=== PATIENT | female | born 1980 | race African-American/Black ===

== ENCOUNTER 2017-12-24 12:55 | Emergency (ER) | payer MEDICARE, MEDICAID ==
[~2017-12-24] VITALS: Ht 154.9 cm; Wt 73.0 kg
[2017-12-24 14:16] VITALS: BP 108/77
[2017-12-24] MEDS ORDERED: ASPIRIN 325MG EC TABLET PO ONE (14:30)
[2017-12-24 15:01] LABS: BASOPHILS % 0.9 % (0.0-2.0); EOSINOPHILS % 1.3 % (0.0-5.0); HEMATOCRIT. 36.7 % (36.0-48.0); HEMOGLOBIN. 12.3 g/dL (12.0-16.0); LYMPHOCYTES % 29.6 % (20.0-50.0); MEAN CORPUSCULAR HEMOGLOBIN 30.2 pg (28.0-32.0); MEAN CORPUSCULAR VOLUME 90.4 fL (81.0-99.0); MEAN PLATELET VOLUME 6.4 fl (7.4-10.4); MONOCYTES % 11.9 % (2.0-8.0); NEUTROPHILS % 56.3 % (40.0-76.0); PLATELET 344 x1000/uL (130-400); RED BLOOD CELL COUNT 4.06 mill/uL (4.2-5.4); RED CELL DISTRIBUTION WIDTH 16.9 % (11.6-14.6)
[2017-12-24 15:06] LABS: INR 1.1; PROTHROMBIN TIME 11.2 sec (9.4-11.6)
[2017-12-24 15:10] LABS: CHLORIDE 94 mEq/L (98-107); ETHANOL BLOOD < 10 mg/dL
[2018-04-21] MEDS ORDERED: PANT40TA4 PO (00:11)
[2018-04-21] MEDS ORDERED: LEVO5TAB13 PO (00:15)
[2018-04-21] MEDS ORDERED: BUSP15TA3 PO (00:18)
[2018-04-21] MEDS ORDERED: HYDR200T35 PO (00:18)
[2018-04-21] MEDS ORDERED: FURO20TA4 PO (00:18)
[2018-04-21] MEDS ORDERED: GABA-290 PO (00:18)
[2018-04-21] MEDS ORDERED: IBUP-2029 PO (00:18)
[2018-04-21] MEDS ORDERED: PARO40TA75 PO (00:21)
[2018-04-21] MEDS ORDERED: DOXE50CA4 PO (00:21)
[2018-04-21] MEDS ORDERED: POTA8CAP10 PO (00:21)
[2018-04-21] MEDS ORDERED: MEDR5TAB4 PO (00:21)
[2018-04-21] MEDS ORDERED: LORA1TAB PO (00:25)
== END 2017-12-24 18:40 | disposition left against medical advice (07) ==
LOC: ER 15:29
DX: G40.909 Epilepsy, unspecified, not intractable, without status epilepticus (principal); F41.9 Anxiety disorder, unspecified; M32.9 Systemic lupus erythematosus, unspecified; R07.89 Other chest pain; R05 Cough
CPT/HCPCS: 36415; 80053; 82140; 83690; 83880; 84484; 85025; 85610; 99284; G0482

== ENCOUNTER 2019-12-17 12:39 | Inpatient (IN) | payer MEDICARE, MEDICAID ==
[~2019-12-17] VITALS: Ht 162.6 cm; Wt 60.4 kg
[~2019-12-17 12:39] MED LIST: BUSP15TA3 PO; DOXE50CA4 PO; FURO20TA4 PO; GABA-290 PO; HYDR200T35 PO; IBUP-2029 PO; LEVO5TAB13 PO; LORA1TAB PO; MEDR5TAB4 PO; PANT40TA4 PO; PARO40TA75 PO; POTA8CAP20 PO
[2019-12-17] MEDS ORDERED: SODIUM CHLORIDE 0.9% 1,000 ML IV ONE (14:26)
[2019-12-17 15:24] LABS: HEMATOCRIT. 38.2 % (36.0-48.0); HEMOGLOBIN. 12.6 g/dL (12.0-16.0); MEAN CORPUSCULAR VOLUME 94.2 fL (81.0-99.0); MEAN PLATELET VOLUME 7.9 fl (7.4-10.4); PLATELET 313 x1000/uL (130-400); RED BLOOD CELL COUNT 4.06 mill/uL (4.2-5.4)
[2019-12-17 15:26] LABS: CHLORIDE 114 mEq/L (98-107)
[2019-12-17] MEDS ORDERED: ACETAMINOPHEN 325MG TABLET PO ONE (15:30)
[2019-12-17 15:35] LABS: ETHANOL BLOOD < 10 mg/dL
[2019-12-17] MEDS ORDERED: LORAZEPAM 2MG/ML CPJ IV ONE ×2 (16:00→16:15)
[2019-12-17] MEDS ORDERED: LEVETIRACETAM 1000MG/100ML 100 ML IV ONE (16:00)
[2019-12-17] MEDS ORDERED: SUCCINYLCHOLINE CHLORIDE 200MG/10ML IV ONE ×2 (16:15→17:01)
[2019-12-17] MEDS ORDERED: ETOMIDATE 2MG/ML 10ML VIAL IV ONE ×2 (16:15→17:01)
[2019-12-17] MEDS ORDERED: MIDAZOLAM HCL 2 MG/2 ML VIAL IV ONE (16:15)
[2019-12-17] MEDS ORDERED: MIDAZOLAM HCL 50 MG in DEXTROSE 5% WATER 40 ML IV ONE (16:15)
[2019-12-17] MEDS ORDERED: PHENYTOIN SODIUM 1,000 MG in SODIUM CHLORIDE 0.9% 100 ML IV ONE (16:30)
[2019-12-17 16:31] LABS: PLATELET ESTIMATE NORMAL
[2019-12-17] MEDS ORDERED: MIDAZOLAM HCL 50 MG in DEXTROSE 5% WATER 40 ML IV PRN (16:45)
[2019-12-17] MEDS: PROPOFOL 10MG/ML 100ML 100 ML IV SCH ×2 (17:13→21:35)
[2019-12-17] MEDS ORDERED: HYDROCODONE/ACETAMINOPHEN 5/325MG TABLET PO PRN (17:45)
[2019-12-17] MEDS ORDERED: ACETAMINOPHEN 650MG SUPP PR PRN (17:45)
[2019-12-17] MEDS ORDERED: PROPOFOL 10MG/ML 100ML 100 ML IV PRN (17:45)
[2019-12-17] MEDS ORDERED: ACETAMINOPHEN 325MG TABLET PO PRN (17:45)
[2019-12-17] MEDS ORDERED: NA PHOS,M-B/NA PHOS,DI-BA ENEMA 118ML PR PRN (17:45)
[2019-12-17] MEDS ORDERED: CLONIDINE 0.1MG TABLET PO PRN (17:45)
[2019-12-17] MEDS ORDERED: GUAIFENESIN 200MG/10ML SUGAR FREE UDC PO PRN (17:45)
[2019-12-17] MEDS ORDERED: IPRATROPIUM/ALBUTEROL 0.5-3(2.5)MG/3ML NEB NEB PRN (17:45)
[2019-12-17] MEDS ORDERED: ONDANSETRON HCL 4MG/2ML INJ IV PRN (17:45)
[2019-12-17] MEDS ORDERED: DOCUSATE SODIUM 100MG CAPSULE PO PRN (17:45)
[2019-12-17] MEDS ORDERED: DIPHENHYDRAMINE 50MG/ML VIAL IV PRN (17:45)
[2019-12-17] MEDS ORDERED: MAGNESIUM/ALUMINUM HYDROXIDE/SIMETHICONE 30ML UDC PO PRN (17:45)
[2019-12-17 18:08] LABS: BG BASE EXCESS -7.6 mmol/L (-2.0-2.0); BG CARBOXYHEMOGLOBIN 0.5 % (0.5-1.5); BG DEOXYHEMOGLOBIN 0.5 % (0.0-5.0); BG FRACTION INSPIRED OXYGEN 100; BG HCO3 ACT 15.2 mmol/L (22.0-26.0); BG METHEMOGLOBIN 0.1 % (0.0-1.5); BG OXYGEN SATURATION 99.5 % (92.0-98.5); BG OXYHEMOGLOBIN 98.9 % (94.0-97.0); BG PCO2 24.1 mmHg (35.0-45.0); BG PH 7.419 (7.350-7.450); BG PO2 388.1 mmHg (75.0-100.0); BG SAMPLE SITE RIGHT BRACHIAL; BG TIDAL VOLUME(mL) 500 mL; BG TOTAL HEMOGLOBIN 11.6 g/dL (12.0-18.0); BG VENT MODE VENT - A/C; BG VENT RATE 16 set
[2019-12-17] MEDS ORDERED: FAMOTIDINE 20MG/2ML VIAL IV SCH (20:00)
[2019-12-17] MEDS ORDERED: PIPERACILLIN/TAZOBACTAM 3.375 G in DEXT 5% WATER 100 ML IV SCH (20:15)
[2019-12-17 20:35] LABS: HCG SCREEN NEGATIVE
[2019-12-17] MEDS ORDERED: PROPOFOL 10MG/ML 100ML 100 ML IV ONE (21:27)
[2019-12-17] MEDS: DEXT 5%/0.45% NACL 1000ML 1,000 ML IV SCH (22:14)
[2019-12-18] VITALS (41 sets, daily range): BP systolic 109–173; BP diastolic 44–103
[2019-12-18] MEDS: PHENYTOIN SODIUM 100MG/2ML VIAL IV SCH ×4 (01:47→22:05)
[2019-12-18 02:11] LABS: CREATINE KINASE MB FRACTION 1.7 ng/mL (0.5-3.6)
[2019-12-18 05:29] LABS: BG BASE EXCESS -2.8 mmol/L (-2.0-2.0); BG CARBOXYHEMOGLOBIN 0.3 % (0.5-1.5); BG DEOXYHEMOGLOBIN 0.6 % (0.0-5.0); BG FRACTION INSPIRED OXYGEN 100; BG METHEMOGLOBIN 0.1 % (0.0-1.5); BG OXYGEN SATURATION 99.4 % (92.0-98.5); BG PCO2 21.6 mmHg (35.0-45.0); BG PEEP (cmH2O) 0 cmH2O; BG PH 7.538 (7.350-7.450); BG PO2 328.1 mmHg (75.0-100.0); BG SAMPLE SITE RIGHT RADIAL; BG TIDAL VOLUME(mL) 500 mL; BG TOTAL HEMOGLOBIN 11.9 g/dL (12.0-18.0); BG VENT MODE VENT - A/C; BG VENT RATE 16 set
[2019-12-18] MEDS ORDERED: MIDAZOLAM HCL 50 MG in DEXTROSE 5% WATER 40 ML IV PRN (05:45)
[2019-12-18] MEDS: DEXT 5%/0.45% NACL 1000ML 1,000 ML IV SCH ×3 (05:47→22:21)
[2019-12-18] MEDS: LORAZEPAM 2MG/ML CPJ IV PRN ×2 (06:29→08:29)
[2019-12-18 07:40] LABS: CHLORIDE 115 mEq/L (98-107)
[2019-12-18 07:53] LABS: LDL CHOLESTEROL 208 mg/dL (5-100)
[2019-12-18 07:54] LABS: CREATINE KINASE 173 IU/L (26-192); CREATINE KINASE MB FRACTION 1.6 ng/mL (0.5-3.6)
[2019-12-18 07:55] LABS: T4 FREE 0.77 ng/dL (0.76-1.46)
[2019-12-18 07:56] LABS: HDL CHOLESTEROL 73 mg/dL (40-59)
[2019-12-18] MEDS: LEVETIRACETAM 500MG PREMIX 100 ML IV SCH ×2 (09:49→22:04)
[2019-12-18] MEDS: PIPERACILLIN/TAZOBACTAM 3.375 G in DEXT 5% WATER 100 ML IV SCH ×3 (09:49→22:04)
[2019-12-18] MEDS: MIDAZOLAM HCL 50 MG in DEXTROSE 5% WATER 40 ML IV PRN ×2 (10:08→21:37)
[2019-12-18 10:23] LABS: HEMATOCRIT. 39.9 % (36.0-48.0); MEAN CORPUSCULAR HEMOGLOBIN 31.5 pg (28.0-32.0); MEAN CORPUSCULAR VOLUME 96.6 fL (81.0-99.0); PLATELET 282 x1000/uL (130-400); RED BLOOD CELL COUNT 4.13 mill/uL (4.2-5.4)
[2019-12-18] MEDS ORDERED: OSELTAMIVIR 75MG CAPSULE PO NR (11:09)
[2019-12-18] MEDS: FAMOTIDINE 20MG/2ML VIAL IV SCH (11:19)
[2019-12-18 12:08] LABS: PLATELET ESTIMATE NORMAL
[2019-12-18 16:15] LABS: BG BASE EXCESS -6.1 mmol/L (-2.0-2.0); BG CARBOXYHEMOGLOBIN 0.5 % (0.5-1.5); BG DEOXYHEMOGLOBIN 4.6 % (0.0-5.0); BG FRACTION INSPIRED OXYGEN 50; BG HCO3 ACT 18.4 mmol/L (22.0-26.0); BG OXYGEN SATURATION 95.4 % (92.0-98.5); BG OXYHEMOGLOBIN 94.9 % (94.0-97.0); BG PCO2 33.4 mmHg (35.0-45.0); BG PO2 81.2 mmHg (75.0-100.0); BG PRESSURE SUPPORT 10; BG SAMPLE SITE RIGHT RADIAL; BG VENT MODE VENT - CPAP
[2019-12-18] MEDS: ATORVASTATIN CALCIUM 10MG TABLET PO SCH (22:05)
[2019-12-18] MEDS: OSELTAMIVIR 75MG CAPSULE PO SCH (22:07)
[2019-12-18 22:41] LABS: BG CARBOXYHEMOGLOBIN 0.4 % (0.5-1.5); BG FRACTION INSPIRED OXYGEN 50; BG HCO3 ACT 18.1 mmol/L (22.0-26.0); BG OXYHEMOGLOBIN 98.6 % (94.0-97.0); BG PCO2 20.2 mmHg (35.0-45.0); BG PH 7.571 (7.350-7.450); BG PO2 148.1 mmHg (75.0-100.0); BG SAMPLE SITE RIGHT RADIAL; BG TIDAL VOLUME(mL) 500 mL; BG VENT MODE VENT - A/C; BG VENT RATE 16 set
[2019-12-19] VITALS (91 sets, daily range): BP systolic 71–156; BP diastolic 21–102
[2019-12-19] MEDS: MIDAZOLAM HCL 50 MG in DEXTROSE 5% WATER 40 ML IV PRN ×4 (01:16→22:07)
[2019-12-19] MEDS: PIPERACILLIN/TAZOBACTAM 3.375 G in DEXT 5% WATER 100 ML IV SCH ×4 (04:36→22:16)
[2019-12-19 05:49] LABS: HEMATOCRIT 33.3 % (36.0-48.0); HEMOGLOBIN 11.5 g/dL (12.0-16.0); MEAN CORPUSCULAR HEMOGLOBIN 31.8 pg (28.0-32.0); MEAN CORPUSCULAR VOLUME 92.2 fL (81.0-99.0); PLATELET 262 x1000/uL (130-400); RED BLOOD CELL COUNT 3.61 mill/uL (4.2-5.4); RED CELL DISTRIBUTION WIDTH 14.6 % (11.6-14.6)
[2019-12-19 05:54] LABS: CHLORIDE 114 mEq/L (98-107)
[2019-12-19] MEDS: PHENYTOIN SODIUM 100MG/2ML VIAL IV SCH ×3 (07:47→22:19)
[2019-12-19] MEDS ORDERED: POTASSIUM CHLORIDE 20MEQ/PACKET PO SCH (08:30)
[2019-12-19 08:32] LABS: BG BASE EXCESS -6.5 mmol/L (-2.0-2.0); BG CARBOXYHEMOGLOBIN 0.3 % (0.5-1.5); BG FRACTION INSPIRED OXYGEN 50; BG HCO3 ACT 15.2 mmol/L (22.0-26.0); BG METHEMOGLOBIN 0.3 % (0.0-1.5); BG OXYHEMOGLOBIN 98.4 % (94.0-97.0); BG PCO2 21.2 mmHg (35.0-45.0); BG PH 7.473 (7.350-7.450); BG PO2 201.8 mmHg (75.0-100.0); BG SAMPLE SITE RIGHT RADIAL; BG TIDAL VOLUME(mL) 500 mL; BG TOTAL HEMOGLOBIN 11.9 g/dL (12.0-18.0); BG VENT MODE VENT - A/C; BG VENT RATE 16 set
[2019-12-19] MEDS ORDERED: POTASSIUM CHLORIDE INJ 40 MEQ in DEXT 5% WATER 250 ML IV SCH (09:00)
[2019-12-19] MEDS: FAMOTIDINE 20MG/2ML VIAL IV SCH (09:08)
[2019-12-19] MEDS: LEVETIRACETAM 500MG PREMIX 100 ML IV SCH ×2 (09:08→21:41)
[2019-12-19] MEDS: OSELTAMIVIR 75MG CAPSULE PO SCH ×2 (09:08→21:40)
[2019-12-19] MEDS: DEXT 5%/0.45% NACL 1000ML 1,000 ML IV SCH ×2 (09:45→20:26)
[2019-12-19 14:09] LABS: BG BASE EXCESS -7.2 mmol/L (-2.0-2.0); BG CARBOXYHEMOGLOBIN 0.3 % (0.5-1.5); BG FRACTION INSPIRED OXYGEN 50; BG HCO3 ACT 16.9 mmol/L (22.0-26.0); BG METHEMOGLOBIN 0.3 % (0.0-1.5); BG OXYHEMOGLOBIN 98.4 % (94.0-97.0); BG PCO2 29.9 mmHg (35.0-45.0); BG PRESSURE SUPPORT 10; BG SAMPLE SITE RIGHT RADIAL; BG TOTAL HEMOGLOBIN 11.7 g/dL (12.0-18.0); BG VENT MODE VENT - CPAP
[2019-12-19] MEDS: METHYLPREDNISOLONE SOD SUCC 40 MG/ML VIAL IV SCH (17:53)
[2019-12-19] MEDS ORDERED: MAGNESIUM 2 G PREMIX 50 ML IV NR (18:30)
[2019-12-19] MEDS: IPRATROPIUM/ALBUTEROL 0.5-3(2.5)MG/3ML NEB HHN SCH (19:52)
[2019-12-19] MEDS ORDERED: VANCOMYCIN 1500MG in DEXTROSE 5% WATER 250ML IV NR (20:00)
[2019-12-19 20:08] LABS: CLARITY URINE CLEAR (CLEAR); COLOR URINE YELLOW (YELLOW); KETONES URINE NEGATIVE (NEGATIVE); LEUKOCYTE ESTERASE URINE 1+ (NEGATIVE); NITRITE URINE NEGATIVE (NEGATIVE); OCCULT BLOOD URINE 2+ (NEGATIVE); PH URINE 7.5 (4.5-8.0); PROTEIN URINE 1+ (NEGATIVE); SPECIFIC GRAVITY URINE 1.017 (1.005-1.030); UROBILINOGEN URINE 0.2 E.U./dL (0.2-1.0)
[2019-12-19 20:18] LABS: *AMPHETAMINES SCREEN URINE NEGATIVE (NEGATIVE); *BARBITURATES SCREEN URINE NEGATIVE (NEGATIVE); *COCAINE SCREEN URINE NEGATIVE (NEGATIVE); METHADONE URINE SCREEN NEGATIVE (NEGATIVE); OPIATES URINE SCREEN NEGATIVE (NEGATIVE)
[2019-12-19 20:19] LABS: PHENCYCLIDINE URINE SCREEN NEGATIVE (NEGATIVE)
[2019-12-19 20:30] LABS: *BENZODIAZEPINES SCREEN URINE PRESUMTIVE POSITIVE (NEGATIVE); CANNABINOID URINE SCREEN PRESUMTIVE POSITIVE (NEGATIVE)
[2019-12-19] MEDS: ATORVASTATIN CALCIUM 10MG TABLET PO SCH (21:40)
[2019-12-19] MEDS ORDERED: POTASSIUM CHLORIDE INJ 40 MEQ in DEXT 5% WATER 250 ML IV ONE (22:00)
[2019-12-20] VITALS (57 sets, daily range): BP systolic 94–175; BP diastolic 39–109
[2019-12-20] MEDS: LORAZEPAM 2MG/ML CPJ IV PRN ×5 (00:39→16:58)
[2019-12-20] MEDS: METHYLPREDNISOLONE SOD SUCC 40 MG/ML VIAL IV SCH ×3 (01:23→16:58)
[2019-12-20] MEDS: IPRATROPIUM/ALBUTEROL 0.5-3(2.5)MG/3ML NEB HHN SCH ×4 (01:48→20:44)
[2019-12-20] MEDS: MIDAZOLAM HCL 50 MG in DEXTROSE 5% WATER 40 ML IV PRN ×3 (03:05→13:48)
[2019-12-20] MEDS: PIPERACILLIN/TAZOBACTAM 3.375 G in DEXT 5% WATER 100 ML IV SCH ×4 (03:07→20:59)
[2019-12-20] MEDS ORDERED: VANCOMYCIN 1 G PREMIX 200 ML IV SCH (04:00)
[2019-12-20] MEDS: DEXT 5%/0.45% NACL 1000ML 1,000 ML IV SCH ×2 (05:45→15:51)
[2019-12-20 05:58] LABS: HEMATOCRIT 37.1 % (36.0-48.0); HEMOGLOBIN 12.2 g/dL (12.0-16.0); PLATELET 289 x1000/uL (130-400); RED BLOOD CELL COUNT 3.94 mill/uL (4.2-5.4); RED CELL DISTRIBUTION WIDTH 14.6 % (11.6-14.6)
[2019-12-20 06:03] LABS: CHLORIDE 115 mEq/L (98-107)
[2019-12-20 06:09] LABS: PHOSPHORUS 1.9 mg/dL (2.5-4.9)
[2019-12-20 06:30] LABS: BG BASE EXCESS -7.3 mmol/L (-2.0-2.0); BG CARBOXYHEMOGLOBIN 0.3 % (0.5-1.5); BG DEOXYHEMOGLOBIN 0.9 % (0.0-5.0); BG FRACTION INSPIRED OXYGEN 50; BG HCO3 ACT 14.8 mmol/L (22.0-26.0); BG METHEMOGLOBIN 0.3 % (0.0-1.5); BG OXYGEN SATURATION 99.1 % (92.0-98.5); BG OXYHEMOGLOBIN 98.5 % (94.0-97.0); BG PCO2 21.9 mmHg (35.0-45.0); BG PH 7.449 (7.350-7.450); BG PO2 177.6 mmHg (75.0-100.0); BG SAMPLE SITE RIGHT RADIAL; BG TIDAL VOLUME(mL) 500 mL; BG TOTAL HEMOGLOBIN 11.6 g/dL (12.0-18.0); BG VENT MODE VENT - A/C; BG VENT RATE 16 set
[2019-12-20] MEDS: PHENYTOIN SODIUM 100MG/2ML VIAL IV SCH ×3 (07:20→21:37)
[2019-12-20] MEDS: LEVETIRACETAM 500MG PREMIX 100 ML IV SCH ×2 (08:36→20:59)
[2019-12-20] MEDS: OSELTAMIVIR 75MG CAPSULE PO SCH ×2 (08:36→20:59)
[2019-12-20] MEDS: FAMOTIDINE 20MG/2ML VIAL IV SCH (08:36)
[2019-12-20] MEDS ORDERED: DEXT 5% IV SCH (11:00)
[2019-12-20] MEDS ORDERED: POTASSIUM CHLORIDE INJ 40 MEQ in DEXT 5% WATER 250 ML IV SCH (11:00)
[2019-12-20] MEDS ORDERED: WATER IV SCH (11:00)
[2019-12-20] MEDS ORDERED: POTASSIUM PHOS M BASIC D BASIC IV SCH (11:00)
[2019-12-20] MEDS ORDERED: LIDOCAINE HCL 1% 20ML VIAL (Pyxis) INJ ONE (11:23)
[2019-12-20] MEDS ORDERED: SODIUM BICARBONATE 4% (2.4MEQ) 5ML VIAL IV ONE (11:23)
[2019-12-20] MEDS: MORPHINE SULFATE 2 MG/ML CPJ (NOT FOR IM USE) IV PRN (12:10)
[2019-12-20] MEDS: VANCOMYCIN 1 G PREMIX 200 ML IV SCH ×2 (13:48→21:38)
[2019-12-20] MEDS: ENOXAPARIN 40MG/0.4ML SYR SUBCUT SCH (16:59)
[2019-12-20] MEDS: RISPERIDONE 0.5MG TABLET PO SCH (19:11)
[2019-12-20] MEDS: ATORVASTATIN CALCIUM 10MG TABLET PO SCH (20:59)
[2019-12-21] VITALS (23 sets, daily range): BP systolic 104–167; BP diastolic 44–91
[2019-12-21] MEDS: LORAZEPAM 2MG/ML CPJ IV PRN (00:18)
[2019-12-21] MEDS: DEXT 5%/0.45% NACL 1000ML 1,000 ML IV SCH ×2 (01:33→11:49)
[2019-12-21] MEDS: METHYLPREDNISOLONE SOD SUCC 40 MG/ML VIAL IV SCH ×3 (01:33→17:00)
[2019-12-21] MEDS: IPRATROPIUM/ALBUTEROL 0.5-3(2.5)MG/3ML NEB HHN SCH ×4 (01:42→21:18)
[2019-12-21] MEDS: LORAZEPAM 2MG/ML CPJ IM PRN ×3 (02:41→12:35)
[2019-12-21] MEDS: PIPERACILLIN/TAZOBACTAM 3.375 G in DEXT 5% WATER 100 ML IV SCH ×4 (03:23→20:40)
[2019-12-21] MEDS: MORPHINE SULFATE 2 MG/ML CPJ (NOT FOR IM USE) IV PRN (05:12)
[2019-12-21] MEDS: VANCOMYCIN 1 G PREMIX 200 ML IV SCH (06:14)
[2019-12-21] MEDS: PHENYTOIN SODIUM 100MG/2ML VIAL IV SCH ×3 (06:14→21:26)
[2019-12-21 06:49] LABS: HEMATOCRIT 29.4 % (36.0-48.0); HEMOGLOBIN 9.4 g/dL (12.0-16.0); MEAN CORPUSCULAR HEMOGLOBIN 30.8 pg (28.0-32.0); MEAN CORPUSCULAR VOLUME 96.1 fL (81.0-99.0); PLATELET 238 x1000/uL (130-400); RED BLOOD CELL COUNT 3.06 mill/uL (4.2-5.4); RED CELL DISTRIBUTION WIDTH 15.2 % (11.6-14.6)
[2019-12-21] MEDS: FAMOTIDINE 20MG/2ML VIAL IV SCH (09:10)
[2019-12-21] MEDS: LEVETIRACETAM 500MG PREMIX 100 ML IV SCH ×2 (09:11→20:41)
[2019-12-21] MEDS: RISPERIDONE 0.5MG TABLET PO SCH ×2 (09:26→17:00)
[2019-12-21] MEDS: OSELTAMIVIR 75MG CAPSULE PO SCH ×2 (09:26→20:41)
[2019-12-21 10:57] LABS: BG BASE EXCESS -7.9 mmol/L (-2.0-2.0); BG CARBOXYHEMOGLOBIN 0.3 % (0.5-1.5); BG DEOXYHEMOGLOBIN 1.2 % (0.0-5.0); BG FRACTION INSPIRED OXYGEN 40; BG HCO3 ACT 17.2 mmol/L (22.0-26.0); BG OXYGEN SATURATION 98.8 % (92.0-98.5); BG OXYHEMOGLOBIN 98.5 % (94.0-97.0); BG PCO2 33.5 mmHg (35.0-45.0); BG PH 7.328 (7.350-7.450); BG PO2 164.5 mmHg (75.0-100.0); BG SAMPLE SITE RIGHT BRACHIAL; BG TIDAL VOLUME(mL) 400 mL; BG TOTAL HEMOGLOBIN 11.3 g/dL (12.0-18.0); BG VENT MODE VENT - A/C; BG VENT RATE 16 set
[2019-12-21 11:39] LABS: CHLORIDE 115 mEq/L (98-107)
[2019-12-21 12:36] LABS: VANCOMYCIN TROUGH 51.9 ug/mL (5.0-10.0)
[2019-12-21 13:27] LABS: BG BASE EXCESS -7.2 mmol/L (-2.0-2.0); BG CARBOXYHEMOGLOBIN 0.2 % (0.5-1.5); BG DEOXYHEMOGLOBIN 1.2 % (0.0-5.0); BG FRACTION INSPIRED OXYGEN 40; BG HCO3 ACT 17.3 mmol/L (22.0-26.0); BG METHEMOGLOBIN 0.1 % (0.0-1.5); BG OXYGEN SATURATION 98.8 % (92.0-98.5); BG OXYHEMOGLOBIN 98.5 % (94.0-97.0); BG PCO2 32.1 mmHg (35.0-45.0); BG PO2 148.7 mmHg (75.0-100.0); BG SAMPLE SITE RIGHT RADIAL; BG TIDAL VOLUME(mL) 400 mL; BG TOTAL HEMOGLOBIN 12.9 g/dL (12.0-18.0); BG VENT MODE VENT - A/C; BG VENT RATE 16 set
[2019-12-21 15:05] LABS: BG BASE EXCESS -8.4 mmol/L (-2.0-2.0); BG CARBOXYHEMOGLOBIN 0.3 % (0.5-1.5); BG DEOXYHEMOGLOBIN 1.4 % (0.0-5.0); BG FRACTION INSPIRED OXYGEN 40; BG HCO3 ACT 16.4 mmol/L (22.0-26.0); BG METHEMOGLOBIN 0.2 % (0.0-1.5); BG OXYGEN SATURATION 98.6 % (92.0-98.5); BG OXYHEMOGLOBIN 98.1 % (94.0-97.0); BG PCO2 31.5 mmHg (35.0-45.0); BG PH 7.334 (7.350-7.450); BG PO2 155.7 mmHg (75.0-100.0); BG PRESSURE SUPPORT 10; BG SAMPLE SITE RIGHT RADIAL; BG VENT MODE VENT - CPAP
[2019-12-21] MEDS: ENOXAPARIN 40MG/0.4ML SYR SUBCUT SCH (17:00)
[2019-12-21 18:14] LABS: BG BASE EXCESS -8.3 mmol/L (-2.0-2.0); BG CARBOXYHEMOGLOBIN 0.3 % (0.5-1.5); BG DEOXYHEMOGLOBIN 1.3 % (0.0-5.0); BG HCO3 ACT 15.8 mmol/L (22.0-26.0); BG METHEMOGLOBIN 0.3 % (0.0-1.5); BG OXYGEN SATURATION 98.7 % (92.0-98.5); BG OXYHEMOGLOBIN 98.1 % (94.0-97.0); BG PCO2 28.7 mmHg (35.0-45.0); BG PO2 151.4 mmHg (75.0-100.0); BG SAMPLE SITE RIGHT RADIAL; BG TOTAL HEMOGLOBIN 11.6 g/dL (12.0-18.0); BG VENT MODE MASK - AEROSOL
[2019-12-21] MEDS: ATORVASTATIN CALCIUM 10MG TABLET PO SCH (20:41)
[2019-12-21 23:46] LABS: PROTHROMBIN TIME 10.5 sec (9.6-11.0)
[2019-12-22] VITALS (25 sets, daily range): BP systolic 89–142; BP diastolic 41–100
[2019-12-22] MEDS: DEXT 5%/0.45% NACL 1000ML 1,000 ML IV SCH ×3 (00:46→17:51)
[2019-12-22] MEDS: METHYLPREDNISOLONE SOD SUCC 40 MG/ML VIAL IV SCH ×3 (00:58→16:03)
[2019-12-22] MEDS: IPRATROPIUM/ALBUTEROL 0.5-3(2.5)MG/3ML NEB HHN SCH ×4 (02:06→20:10)
[2019-12-22] MEDS: PIPERACILLIN/TAZOBACTAM 3.375 G in DEXT 5% WATER 100 ML IV SCH ×4 (03:09→20:19)
[2019-12-22] MEDS: PHENYTOIN SODIUM 100MG/2ML VIAL IV SCH ×3 (05:37→21:10)
[2019-12-22 06:53] LABS: MEAN CORPUSCULAR HEMOGLOBIN 31.6 pg (28.0-32.0); MEAN CORPUSCULAR VOLUME 94.5 fL (81.0-99.0); PLATELET 316 x1000/uL (130-400); RED BLOOD CELL COUNT 3.64 mill/uL (4.2-5.4); RED CELL DISTRIBUTION WIDTH 14.9 % (11.6-14.6)
[2019-12-22 07:27] LABS: HEMATOCRIT 34.4 % (36.0-48.0); HEMOGLOBIN 11.5 g/dL (12.0-16.0)
[2019-12-22] MEDS: LORAZEPAM 2MG/ML CPJ IV PRN ×4 (07:31→22:25)
[2019-12-22] MEDS: LEVETIRACETAM 500MG PREMIX 100 ML IV SCH (08:37)
[2019-12-22 08:39] LABS: CHLORIDE 116 mEq/L (98-107)
[2019-12-22] MEDS: FAMOTIDINE 20MG/2ML VIAL IV SCH (08:42)
[2019-12-22] MEDS: OSELTAMIVIR 75MG CAPSULE PO SCH ×2 (08:43→20:19)
[2019-12-22] MEDS: RISPERIDONE 0.5MG TABLET PO SCH ×2 (08:43→16:04)
[2019-12-22 08:45] LABS: BG BASE EXCESS -4.6 mmol/L (-2.0-2.0); BG DEOXYHEMOGLOBIN 1.8 % (0.0-5.0); BG FRACTION INSPIRED OXYGEN 21; BG HCO3 ACT 19.3 mmol/L (22.0-26.0); BG METHEMOGLOBIN 0.3 % (0.0-1.5); BG OXYGEN SATURATION 98.2 % (92.0-98.5); BG OXYHEMOGLOBIN 97.9 % (94.0-97.0); BG PCO2 31.8 mmHg (35.0-45.0); BG SAMPLE SITE RIGHT RADIAL; BG TOTAL HEMOGLOBIN 11.7 g/dL (12.0-18.0); BG VENT MODE ROOM AIR
[2019-12-22] MEDS: ENOXAPARIN 40MG/0.4ML SYR SUBCUT SCH (16:04)
[2019-12-22] MEDS ORDERED: METOCLOPRAMIDE HCL 10MG/2ML VIAL IV SCH (18:00)
[2019-12-22] MEDS: ATORVASTATIN CALCIUM 10MG TABLET PO SCH (20:19)
[2019-12-22] MEDS: LEVETIRACETAM 1000MG/100ML 100 ML IV SCH (20:21)
[2019-12-22] MEDS: MORPHINE SULFATE 2 MG/ML CPJ (NOT FOR IM USE) IV PRN (20:30)
[2019-12-22] MEDS ORDERED: LEVETIRACETAM 1,000 MG in SODIUM CHLORIDE 0.9% 100 ML IV SCH (21:00)
[2019-12-23] VITALS (20 sets, daily range): BP systolic 117–145; BP diastolic 33–99
[2019-12-23] MEDS ORDERED: METHYLPREDNISOLONE SOD SUCC 40 MG/ML VIAL IV SCH
[2019-12-23] MEDS: IPRATROPIUM/ALBUTEROL 0.5-3(2.5)MG/3ML NEB HHN SCH ×4 (01:54→22:20)
[2019-12-23] MEDS ORDERED: IPRATROPIUM/ALBUTEROL 0.5-3(2.5)MG/3ML NEB ONE (01:55)
[2019-12-23] MEDS: METHYLPREDNISOLONE SOD SUCC 40 MG/ML VIAL IV SCH ×2 (02:04→14:45)
[2019-12-23] MEDS: PIPERACILLIN/TAZOBACTAM 3.375 G in DEXT 5% WATER 100 ML IV SCH ×4 (02:05→21:00)
[2019-12-23] MEDS: MORPHINE SULFATE 2 MG/ML CPJ (NOT FOR IM USE) IV PRN (02:07)
[2019-12-23] MEDS: LORAZEPAM 2MG/ML CPJ IV PRN ×3 (03:43→23:43)
[2019-12-23] MEDS: DIPHENHYDRAMINE 50MG/ML VIAL IV PRN (03:43)
[2019-12-23 05:47] LABS: HEMOGLOBIN 10.6 g/dL (12.0-16.0); MEAN CORPUSCULAR HEMOGLOBIN 31.4 pg (28.0-32.0); MEAN CORPUSCULAR VOLUME 92.1 fL (81.0-99.0); PLATELET 301 x1000/uL (130-400); RED BLOOD CELL COUNT 3.37 mill/uL (4.2-5.4); RED CELL DISTRIBUTION WIDTH 14.5 % (11.6-14.6)
[2019-12-23] MEDS ORDERED: ACETAMINOPHEN 325MG TABLET PO PRN (06:15)
[2019-12-23] MEDS ORDERED: CLONIDINE 0.1MG TABLET PO PRN (06:15)
[2019-12-23 06:22] LABS: CHLORIDE 114 mEq/L (98-107)
[2019-12-23] MEDS: PHENYTOIN SODIUM 100MG/2ML VIAL IV SCH ×3 (06:24→20:53)
[2019-12-23] MEDS ORDERED: POTASSIUM CHLORIDE 20MEQ TABLET SR PO SCH (07:00)
[2019-12-23] MEDS: LEVETIRACETAM 1000MG/100ML 100 ML IV SCH ×2 (08:06→20:42)
[2019-12-23] MEDS: OSELTAMIVIR 75MG CAPSULE PO SCH ×2 (08:06→21:00)
[2019-12-23] MEDS: RISPERIDONE 0.5MG TABLET PO SCH ×2 (08:07→17:08)
[2019-12-23] MEDS: PANTOPRAZOLE SODIUM 40 MG/VIAL IV SCH (09:12)
[2019-12-23 11:56] LABS: CHLORIDE 115 mEq/L (98-107)
[2019-12-23] MEDS: DEXT 5%/0.45% NACL 1000ML 1,000 ML IV SCH ×3 (13:45→23:45)
[2019-12-23] MEDS: ENOXAPARIN 40MG/0.4ML SYR SUBCUT SCH (17:08)
[2019-12-23] MEDS: ATORVASTATIN CALCIUM 10MG TABLET PO SCH (21:00)
[2019-12-24] VITALS (18 sets, daily range): BP systolic 111–133; BP diastolic 35–94
[2019-12-24] MEDS: IPRATROPIUM/ALBUTEROL 0.5-3(2.5)MG/3ML NEB HHN SCH ×5 (01:46→21:32)
[2019-12-24] MEDS: METHYLPREDNISOLONE SOD SUCC 40 MG/ML VIAL IV SCH ×2 (02:46→13:37)
[2019-12-24] MEDS: PIPERACILLIN/TAZOBACTAM 3.375 G in DEXT 5% WATER 100 ML IV SCH ×4 (02:46→20:22)
[2019-12-24] MEDS: PHENYTOIN SODIUM 100MG/2ML VIAL IV SCH ×3 (06:31→21:02)
[2019-12-24] MEDS: MORPHINE SULFATE 2 MG/ML CPJ (NOT FOR IM USE) IV PRN (06:31)
[2019-12-24 06:59] LABS: HEMOGLOBIN 11.3 g/dL (12.0-16.0); MEAN CORPUSCULAR HEMOGLOBIN 31.6 pg (28.0-32.0); MEAN CORPUSCULAR VOLUME 92.1 fL (81.0-99.0); PLATELET 295 x1000/uL (130-400); RED BLOOD CELL COUNT 3.59 mill/uL (4.2-5.4); RED CELL DISTRIBUTION WIDTH 14.6 % (11.6-14.6)
[2019-12-24] MEDS ORDERED: NON FORMULARY PATIENT HOME MED XX SCH (07:30)
[2019-12-24] MEDS: LEVETIRACETAM 500MG TABLET PO SCH ×2 (08:42→20:03)
[2019-12-24] MEDS: OSELTAMIVIR 75MG CAPSULE PO SCH ×2 (08:43→20:03)
[2019-12-24] MEDS: RISPERIDONE 0.5MG TABLET PO SCH ×2 (08:43→17:58)
[2019-12-24] MEDS: PANTOPRAZOLE SODIUM 40 MG/VIAL IV SCH (08:44)
[2019-12-24] MEDS ORDERED: CLONAZEPAM 0.5MG TABLET PO SCH (09:00)
[2019-12-24] MEDS: KCL 20MEQ/100ML PREMIX 100 ML IV SCH ×2 (10:26→12:57)
[2019-12-24] MEDS: LORAZEPAM 2MG/ML CPJ IV PRN ×2 (12:26→21:14)
[2019-12-24] MEDS: CLONAZEPAM 1MG TABLET PO SCH ×2 (12:56→22:53)
[2019-12-24] MEDS: DEXT 5%/0.45% NACL 1000ML 1,000 ML IV SCH (15:02)
[2019-12-24] MEDS: ENOXAPARIN 40MG/0.4ML SYR SUBCUT SCH (17:58)
[2019-12-24] MEDS: DIPHENHYDRAMINE 50MG/ML VIAL IV PRN (19:52)
[2019-12-24] MEDS: ALPRAZOLAM 0.5 MG TABLET PO PRN (20:02)
[2019-12-24] MEDS: ATORVASTATIN CALCIUM 10MG TABLET PO SCH (20:03)
[2019-12-25] VITALS (12 sets, daily range): BP systolic 112–130; BP diastolic 71–109
[2019-12-25] MEDS: DEXT 5%/0.45% NACL 1000ML 1,000 ML IV SCH ×2 (01:26→08:02)
[2019-12-25] MEDS: METHYLPREDNISOLONE SOD SUCC 40 MG/ML VIAL IV SCH ×2 (01:26→13:01)
[2019-12-25] MEDS: PIPERACILLIN/TAZOBACTAM 3.375 G in DEXT 5% WATER 100 ML IV SCH ×4 (02:20→21:15)
[2019-12-25] MEDS: IPRATROPIUM/ALBUTEROL 0.5-3(2.5)MG/3ML NEB HHN SCH ×3 (03:42→20:35)
[2019-12-25] MEDS: PHENYTOIN SODIUM 100MG/2ML VIAL IV SCH ×3 (05:39→21:14)
[2019-12-25] MEDS: ACETAMINOPHEN 325MG TABLET PO PRN ×2 (05:39→20:25)
[2019-12-25] MEDS: LEVETIRACETAM 500MG TABLET PO SCH ×2 (08:02→20:25)
[2019-12-25] MEDS: PANTOPRAZOLE SODIUM 40 MG/VIAL IV SCH (08:02)
[2019-12-25] MEDS: OSELTAMIVIR 75MG CAPSULE PO SCH ×2 (08:02→20:25)
[2019-12-25] MEDS: RISPERIDONE 0.5MG TABLET PO SCH ×2 (08:03→17:03)
[2019-12-25] MEDS: LORAZEPAM 2MG/ML CPJ IV PRN ×2 (10:55→20:24)
[2019-12-25] MEDS: CLONAZEPAM 1MG TABLET PO SCH ×2 (13:02→23:12)
[2019-12-25 13:28] LABS: HEMATOCRIT. 30.6 % (36.0-48.0); HEMOGLOBIN. 10.4 g/dL (12.0-16.0); MEAN CORPUSCULAR HEMOGLOBIN 31.2 pg (28.0-32.0); MEAN CORPUSCULAR VOLUME 91.5 fL (81.0-99.0); MEAN PLATELET VOLUME 8.4 fl (7.4-10.4); PLATELET 265 x1000/uL (130-400); RED BLOOD CELL COUNT 3.35 mill/uL (4.2-5.4); RED CELL DISTRIBUTION WIDTH 14.6 % (11.6-14.6)
[2019-12-25] MEDS: ENOXAPARIN 40MG/0.4ML SYR SUBCUT SCH (17:03)
[2019-12-25] MEDS: ATORVASTATIN CALCIUM 10MG TABLET PO SCH (20:25)
[2019-12-25 20:46] LABS: PLATELET ESTIMATE NORMAL
[2019-12-26] VITALS (59 sets, daily range): BP systolic 92–153; BP diastolic 59–99
[2019-12-26] MEDS: IPRATROPIUM/ALBUTEROL 0.5-3(2.5)MG/3ML NEB HHN SCH ×4 (01:50→20:13)
[2019-12-26] MEDS: METHYLPREDNISOLONE SOD SUCC 40 MG/ML VIAL IV SCH ×2 (02:14→14:15)
[2019-12-26] MEDS: MORPHINE SULFATE 2 MG/ML CPJ (NOT FOR IM USE) IV PRN ×2 (02:15→07:51)
[2019-12-26] MEDS: LORAZEPAM 2MG/ML CPJ IV PRN ×3 (03:30→09:41)
[2019-12-26] MEDS: PHENYTOIN SODIUM 100MG/2ML VIAL IV SCH ×2 (04:41→14:15)
[2019-12-26] MEDS: PROPOFOL 10MG/ML 100ML 100 ML IV PRN ×4 (06:47→21:11)
[2019-12-26 07:30] LABS: HEMOGLOBIN. 10.3 g/dL (12.0-16.0); MEAN CORPUSCULAR HEMOGLOBIN 31.2 pg (28.0-32.0); MEAN CORPUSCULAR VOLUME 91.4 fL (81.0-99.0); MEAN PLATELET VOLUME 7.5 fl (7.4-10.4); PLATELET 238 x1000/uL (130-400); RED BLOOD CELL COUNT 3.29 mill/uL (4.2-5.4); RED CELL DISTRIBUTION WIDTH 14.6 % (11.6-14.6)
[2019-12-26 07:44] LABS: CHLORIDE 112 mEq/L (98-107)
[2019-12-26 08:34] LABS: BG BASE EXCESS -2.6 mmol/L (-2.0-2.0); BG CARBOXYHEMOGLOBIN 0.1 % (0.5-1.5); BG DEOXYHEMOGLOBIN 2.3 % (0.0-5.0); BG FRACTION INSPIRED OXYGEN 50; BG METHEMOGLOBIN 0.3 % (0.0-1.5); BG OXYGEN SATURATION 97.7 % (92.0-98.5); BG OXYHEMOGLOBIN 97.3 % (94.0-97.0); BG PCO2 23.5 mmHg (35.0-45.0); BG PH 7.525 (7.350-7.450); BG PO2 104.1 mmHg (75.0-100.0); BG SAMPLE SITE RIGHT RADIAL; BG TIDAL VOLUME(mL) 500 mL; BG TOTAL HEMOGLOBIN 10.1 g/dL (12.0-18.0); BG VENT MODE VENT - A/C; BG VENT RATE 15 set
[2019-12-26] MEDS: RISPERIDONE 0.5MG TABLET PO SCH (09:40)
[2019-12-26] MEDS: PANTOPRAZOLE SODIUM 40 MG/VIAL IV SCH (09:40)
[2019-12-26] MEDS: LEVETIRACETAM 500MG TABLET PO SCH (09:40)
[2019-12-26 10:10] LABS: PHOSPHORUS 3.1 mg/dL (2.5-4.9)
[2019-12-26] MEDS: CLONAZEPAM 1MG TABLET PO SCH (11:30)
[2019-12-26] MEDS ORDERED: POTASSIUM CHLORIDE INJ 40 MEQ in DEXT 5% WATER 250 ML IV NR (12:45)
[2019-12-26] MEDS ORDERED: MAGNESIUM 2 G PREMIX 50 ML IV NR (12:45)
[2019-12-26] MEDS: DEXT 5%/0.45% NACL 1000ML 1,000 ML IV SCH (12:56)
[2019-12-26 13:25] LABS: PLATELET ESTIMATE NORMAL
[2019-12-26] MEDS: LAMOTRIGINE 25MG TABLET PO SCH (15:53)
[2019-12-26] MEDS: ENOXAPARIN 40MG/0.4ML SYR SUBCUT SCH (17:44)
[2019-12-27] VITALS (44 sets, daily range): BP systolic 87–180; BP diastolic 31–92
[2019-12-27] MEDS: DEXT 5%/0.45% NACL 1000ML 1,000 ML IV SCH ×4 (01:38→21:41)
[2019-12-27] MEDS: IPRATROPIUM/ALBUTEROL 0.5-3(2.5)MG/3ML NEB HHN SCH ×4 (01:50→20:40)
[2019-12-27] MEDS: ATORVASTATIN CALCIUM 10MG TABLET PO SCH ×2 (01:50→21:44)
[2019-12-27] MEDS: PHENYTOIN SODIUM 100MG/2ML VIAL IV SCH ×3 (01:51→21:45)
[2019-12-27] MEDS: LEVETIRACETAM 500MG TABLET PO SCH ×3 (01:51→21:44)
[2019-12-27] MEDS: CLONAZEPAM 1MG TABLET PO SCH ×3 (01:54→21:44)
[2019-12-27 05:40] LABS: HEMATOCRIT. 31.1 % (36.0-48.0); HEMOGLOBIN. 10.4 g/dL (12.0-16.0); MEAN CORPUSCULAR HEMOGLOBIN 30.7 pg (28.0-32.0); MEAN CORPUSCULAR VOLUME 91.6 fL (81.0-99.0); MEAN PLATELET VOLUME 7.7 fl (7.4-10.4); PLATELET 226 x1000/uL (130-400); RED BLOOD CELL COUNT 3.39 mill/uL (4.2-5.4); RED CELL DISTRIBUTION WIDTH 14.4 % (11.6-14.6)
[2019-12-27 05:58] LABS: CHLORIDE 115 mEq/L (98-107)
[2019-12-27] MEDS ORDERED: MIDAZOLAM HCL 100 MG in DEXT 5% WATER 80 ML IV STA (06:44)
[2019-12-27] MEDS ORDERED: FENTANYL CITRATE/PF 1,000 MCG in SODIUM CHLORIDE 0.9% 80 ML IV STA (06:44)
[2019-12-27] MEDS ORDERED: KCL 20MEQ/100ML PREMIX 100 ML IV NR (07:30)
[2019-12-27] MEDS: MIDAZOLAM HCL 100 MG in DEXT 5% WATER 80 ML IV PRN ×2 (07:43→17:53)
[2019-12-27] MEDS: FENTANYL CITRATE/PF 1,000 MCG in SODIUM CHLORIDE 0.9% 80 ML IV PRN ×2 (07:44→20:42)
[2019-12-27] MEDS: ALPRAZOLAM 0.5 MG TABLET PO PRN ×3 (08:31→21:44)
[2019-12-27] MEDS: LAMOTRIGINE 25MG TABLET PO SCH (08:31)
[2019-12-27] MEDS: PANTOPRAZOLE SODIUM 40 MG/VIAL IV SCH (08:32)
[2019-12-27 08:55] LABS: BG BASE EXCESS -3.8 mmol/L (-2.0-2.0); BG CARBOXYHEMOGLOBIN 0.2 % (0.5-1.5); BG DEOXYHEMOGLOBIN 0.9 % (0.0-5.0); BG FRACTION INSPIRED OXYGEN 50; BG HCO3 ACT 20.7 mmol/L (22.0-26.0); BG METHEMOGLOBIN 0.3 % (0.0-1.5); BG OXYGEN SATURATION 99.1 % (92.0-98.5); BG OXYHEMOGLOBIN 98.6 % (94.0-97.0); BG PCO2 35.5 mmHg (35.0-45.0); BG PH 7.384 (7.350-7.450); BG SAMPLE SITE RIGHT RADIAL; BG TIDAL VOLUME(mL) 400 mL; BG TOTAL HEMOGLOBIN 10.6 g/dL (12.0-18.0); BG VENT MODE VENT - A/C; BG VENT RATE 12 set
[2019-12-27 11:02] LABS: PLATELET ESTIMATE NORMAL
[2019-12-27] MEDS: ENOXAPARIN 40MG/0.4ML SYR SUBCUT SCH (16:23)
[2019-12-27] MEDS ORDERED: NOREPINEPHRINE 8 MG in DEXT 5% WATER 492 ML IV PRN (21:15)
[2019-12-27 21:22] LABS: CREATINE KINASE MB FRACTION 1.8 ng/mL (0.5-3.6)
[2019-12-27] MEDS: DIPHENHYDRAMINE 50MG/ML VIAL IV PRN (21:45)
[2019-12-27] MEDS: LORAZEPAM 2MG/ML CPJ IV PRN (21:47)
[2019-12-28] VITALS (46 sets, daily range): BP systolic 75–148; BP diastolic 32–86
[2019-12-28] MEDS ORDERED: DEXTROSE 50% WATER 50ML SYRINGE IV NR (01:00)
[2019-12-28] MEDS ORDERED: DEXTROSE 50% WATER 50ML SYRINGE IV PRN ×2 (01:00)
[2019-12-28] MEDS: IPRATROPIUM/ALBUTEROL 0.5-3(2.5)MG/3ML NEB HHN SCH ×4 (02:21→20:37)
[2019-12-28] MEDS ORDERED: DEXT 10% WATER 1,000 ML IV SCH (06:00)
[2019-12-28 06:17] LABS: CHLORIDE 113 mEq/L (98-107)
[2019-12-28 06:51] LABS: HEMATOCRIT. 31.6 % (36.0-48.0); HEMOGLOBIN. 10.6 g/dL (12.0-16.0); MEAN CORPUSCULAR HEMOGLOBIN 31.4 pg (28.0-32.0); MEAN CORPUSCULAR VOLUME 93.8 fL (81.0-99.0); RED BLOOD CELL COUNT 3.37 mill/uL (4.2-5.4); RED CELL DISTRIBUTION WIDTH 14.8 % (11.6-14.6)
[2019-12-28] MEDS: MIDAZOLAM HCL 100 MG in DEXT 5% WATER 80 ML IV PRN (06:58)
[2019-12-28] MEDS: FENTANYL CITRATE/PF 1,000 MCG in SODIUM CHLORIDE 0.9% 80 ML IV PRN (07:02)
[2019-12-28] MEDS: PHENYTOIN SODIUM 100MG/2ML VIAL IV SCH ×2 (08:14→14:18)
[2019-12-28 08:18] LABS: BG BASE EXCESS -4.5 mmol/L (-2.0-2.0); BG CARBOXYHEMOGLOBIN 0.3 % (0.5-1.5); BG DEOXYHEMOGLOBIN 0.9 % (0.0-5.0); BG FRACTION INSPIRED OXYGEN 40; BG HCO3 ACT 21.5 mmol/L (22.0-26.0); BG METHEMOGLOBIN 0.3 % (0.0-1.5); BG OXYGEN SATURATION 99.1 % (92.0-98.5); BG OXYHEMOGLOBIN 98.5 % (94.0-97.0); BG PCO2 43.4 mmHg (35.0-45.0); BG PH 7.313 (7.350-7.450); BG PO2 185.5 mmHg (75.0-100.0); BG SAMPLE SITE RIGHT RADIAL; BG TIDAL VOLUME(mL) 400 mL; BG TOTAL HEMOGLOBIN 10.7 g/dL (12.0-18.0); BG VENT MODE VENT - A/C; BG VENT RATE 12 set
[2019-12-28] MEDS ORDERED: METHYLPREDNISOLONE SOD SUCC 40 MG/ML VIAL IV SCH (09:00)
[2019-12-28] MEDS: PANTOPRAZOLE SODIUM 40 MG/VIAL IV SCH (09:19)
[2019-12-28] MEDS: LEVETIRACETAM 500MG TABLET PO SCH (09:19)
[2019-12-28] MEDS: LAMOTRIGINE 25MG TABLET PO SCH (09:20)
[2019-12-28 10:34] LABS: PLATELET ESTIMATE NORMAL
[2019-12-28 10:36] LABS: PLATELET 313 x1000/uL (130-400)
[2019-12-28] MEDS: CLONAZEPAM 1MG TABLET PO SCH (11:50)
[2019-12-28] MEDS: ACETAMINOPHEN 325MG TABLET PO PRN (11:51)
[2019-12-28] MEDS ORDERED: POTASSIUM CHLORIDE INJ 40 MEQ in DEXT 5% WATER 250 ML IV SCH (12:00)
[2019-12-28 15:05] LABS: BG BASE EXCESS -6.2 mmol/L (-2.0-2.0); BG CARBOXYHEMOGLOBIN 0.3 % (0.5-1.5); BG DEOXYHEMOGLOBIN 1.7 % (0.0-5.0); BG FRACTION INSPIRED OXYGEN 40; BG HCO3 ACT 19.7 mmol/L (22.0-26.0); BG METHEMOGLOBIN 0.2 % (0.0-1.5); BG OXYGEN SATURATION 98.3 % (92.0-98.5); BG OXYHEMOGLOBIN 97.8 % (94.0-97.0); BG PCO2 40.6 mmHg (35.0-45.0); BG PH 7.304 (7.350-7.450); BG PO2 137.3 mmHg (75.0-100.0); BG PRESSURE SUPPORT 10; BG SAMPLE SITE RIGHT RADIAL; BG VENT MODE VENT - CPAP
[2019-12-28] MEDS: ENOXAPARIN 40MG/0.4ML SYR SUBCUT SCH (16:51)
[2019-12-28] MEDS ORDERED: LAMOTRIGINE 25MG TABLET PO SCH (17:00)
== END 2019-12-28 22:00 | disposition short-term general hospital (02) | DRG 208 ==
LOC: ER 13:00 → CVICU 17:12 → ENRESERV 12-18 03:02 → CVICU 12-18 04:55 → 3WST 12-22 23:40 → UNDODISIN 12-22 23:43 → CVICU 12-23 00:32 → 3WST 12-23 10:09 → CVICU 12-26 05:12
PROVIDERS: ADMIT Internal Medicine; ATTEND Internal Medicine
PROC: 5A1945Z Respiratory Ventilation, 24-96 Consecutive Hours (ICD-10-PCS; 2019-12-17)
PROC: 0BH17EZ Insertion of Endotracheal Airway into Trachea, Via Natural or Artificial Opening (ICD-10-PCS; 2019-12-17)
PROC: 02H633Z Insertion of Infusion Device into Right Atrium, Percutaneous Approach (ICD-10-PCS; principal; 2019-12-20)
PROC: B548ZZA Ultrasonography of Superior Vena Cava, Guidance (ICD-10-PCS; 2019-12-20)
PROC: 5A1945Z Respiratory Ventilation, 24-96 Consecutive Hours (ICD-10-PCS; 2019-12-26)
PROC: 0BH17EZ Insertion of Endotracheal Airway into Trachea, Via Natural or Artificial Opening (ICD-10-PCS; 2019-12-26)
DX: J96.00 Acute respiratory failure, unspecified whether with hypoxia or hypercapnia (principal); J69.0 Pneumonitis due to inhalation of food and vomit; J10.00 Influenza due to other identified influenza virus with unspecified type of pneumonia; N39.0 Urinary tract infection, site not specified; J98.11 Atelectasis; G40.901 Epilepsy, unspecified, not intractable, with status epilepticus; E87.6 Hypokalemia; E86.0 Dehydration; E83.42 Hypomagnesemia; M19.90 Unspecified osteoarthritis, unspecified site; G89.4 Chronic pain syndrome; E78.5 Hyperlipidemia, unspecified; M79.7 Fibromyalgia; M32.9 Systemic lupus erythematosus, unspecified; D72.819 Decreased white blood cell count, unspecified; M54.9 Dorsalgia, unspecified; E03.9 Hypothyroidism, unspecified; F43.10 Post-traumatic stress disorder, unspecified; K31.84 Gastroparesis; Z78.1 Physical restraint status; Z88.8 Allergy status to other drugs, medicaments and biological substances; Z79.899 Other long term (current) drug therapy
CPT/HCPCS: 36415; 36600; 70551; 71045; 71250; 76937; 80048; 80053; 80061; 80185; 80202; 80305; 80320; 81003; 82140; 82375; 82542; 82550; 82553; 82805; 82962; 83735; 84100; 84132; 84439; 84443; 84478; 84484; 84703; 85025; 85027; 86038; 87070; 87804; 92610; 93005; 93306; 93970; 94003; 94640; 97162; 99291; C1725; C9113; J0330; J1165; J1200; J1650; J1953; J2060; J2250; J2270; J2543; J2704; J2920; J3010; J3370; J3475; J3480; J3490; J7030; J7040; J7050; J7060; J7620; A4315; G0480

== ENCOUNTER 2020-03-23 20:03 | Emergency (ER) | payer MEDICARE, MEDICAID ==
[~2020-03-23] VITALS: Ht 160 cm; Wt 61.0 kg
[2020-03-23] MEDS ORDERED: LEVETIRACETAM 500MG PREMIX 100 ML IV ONE (21:00)
[2020-03-23 21:20] LABS: BASOPHILS % 1.7 % (0.0-2.0); EOSINOPHILS % 2.5 % (0.0-5.0); HEMATOCRIT. 31.8 % (36.0-48.0); HEMOGLOBIN. 10.7 g/dL (12.0-16.0); LYMPHOCYTES % 43.4 % (20.0-50.0); MEAN CORPUSCULAR HEMOGLOBIN 31.9 pg (28.0-32.0); MEAN CORPUSCULAR VOLUME 94.9 fL (81.0-99.0); MEAN PLATELET VOLUME 8.1 fl (7.4-10.4); MONOCYTES % 10.9 % (2.0-8.0); NEUTROPHILS % 41.5 % (40.0-76.0); PLATELET 228 x1000/uL (130-400); RED BLOOD CELL COUNT 3.36 mill/uL (4.2-5.4)
[2020-03-23 21:27] LABS: CHLORIDE 112 mEq/L (98-107)
[2020-03-23] MEDS ORDERED: TOPIRAMATE 100MG TABLET PO SCH (23:45)
[2020-03-24 02:53] VITALS: BP 124/85
== END 2020-03-24 03:36 | disposition home or self-care (01) ==
LOC: ER 20:03
DX: G40.909 Epilepsy, unspecified, not intractable, without status epilepticus (principal); M79.7 Fibromyalgia; Z79.899 Other long term (current) drug therapy; Z88.8 Allergy status to other drugs, medicaments and biological substances
CPT/HCPCS: 36415; 80053; 85025; 96365; 99284; J1953

== ENCOUNTER 2020-04-06 17:18 | Emergency (ER) | payer OTHER, MEDICAID ==
[~2020-04-06] VITALS: Ht 170.2 cm; Wt 60.0 kg
[2020-04-06] MEDS ORDERED: SODIUM CHLORIDE 0.9% 1,000 ML IV ONE (17:28)
[2020-04-06] MEDS ORDERED: LEVETIRACETAM 1000MG/100ML 100 ML IV ONE (17:30)
[2020-04-06 18:53] LABS: CHLORIDE 114 mEq/L (98-107)
[2020-04-06 18:55] LABS: BASOPHILS % 0.6 % (0.0-2.0); HEMATOCRIT. 27.3 % (36.0-48.0); HEMOGLOBIN. 9.3 g/dL (12.0-16.0); MEAN CORPUSCULAR HEMOGLOBIN 31.3 pg (28.0-32.0); MEAN CORPUSCULAR VOLUME 92.4 fL (81.0-99.0); MEAN PLATELET VOLUME 7.2 fl (7.4-10.4); MONOCYTES % 9.4 % (2.0-8.0); PLATELET 241 x1000/uL (130-400); RED BLOOD CELL COUNT 2.96 mill/uL (4.2-5.4); RED CELL DISTRIBUTION WIDTH 15.9 % (11.6-14.6)
[2020-04-06 18:57] LABS: ETHANOL BLOOD < 10 mg/dL
[2020-04-06] MEDS ORDERED: PHENYTOIN SODIUM 1,000 MG in SODIUM CHLORIDE 0.9% 100 ML IV ONE (19:45)
[2020-04-06 20:53] LABS: CLARITY URINE CLEAR (CLEAR); COLOR URINE YELLOW (YELLOW); KETONES URINE NEGATIVE (NEGATIVE); LEUKOCYTE ESTERASE URINE 1+ (NEGATIVE); NITRITE URINE NEGATIVE (NEGATIVE); OCCULT BLOOD URINE NEGATIVE (NEGATIVE); PH URINE 6.5 (4.5-8.0); PROTEIN URINE NEGATIVE (NEGATIVE); SPECIFIC GRAVITY URINE 1.006 (1.005-1.030); UROBILINOGEN URINE 0.2 E.U./dL (0.2-1.0)
[2020-04-06 21:06] LABS: *COCAINE SCREEN URINE NEGATIVE (NEGATIVE); METHADONE URINE SCREEN NEGATIVE (NEGATIVE); OPIATES URINE SCREEN NEGATIVE (NEGATIVE)
[2020-04-06 21:07] LABS: *AMPHETAMINES SCREEN URINE NEGATIVE (NEGATIVE); *BARBITURATES SCREEN URINE NEGATIVE (NEGATIVE); PHENCYCLIDINE URINE SCREEN NEGATIVE (NEGATIVE)
[2020-04-06 21:09] LABS: *BENZODIAZEPINES SCREEN URINE PRESUMTIVE POSITIVE (NEGATIVE); CANNABINOID URINE SCREEN PRESUMTIVE POSITIVE (NEGATIVE)
[2020-04-06 21:30] VITALS: BP 102/68
[2020-04-06] MEDS: POTASSIUM CHLORIDE 20MEQ TABLET SR PO SCH ×2 (22:01→22:28)
== END 2020-04-06 23:13 | disposition home or self-care (01) ==
LOC: ER 17:18
DX: G40.909 Epilepsy, unspecified, not intractable, without status epilepticus (principal); D64.9 Anemia, unspecified; E87.6 Hypokalemia; Z88.8 Allergy status to other drugs, medicaments and biological substances
CPT/HCPCS: 36415; 80053; 80185; 80305; 80320; 81003; 85025; 96365; 96366; 96375; 99284; J1165; J1953; J7030; J7050; G0480

== ENCOUNTER 2020-04-08 21:30 | Emergency (ER) | payer OTHER, MEDICAID ==
[~2020-04-08] VITALS: Ht 167.6 cm; Wt 63.0 kg
[2020-04-08] MEDS ORDERED: LORAZEPAM 2MG/ML CPJ IV ONE (22:45)
[2020-04-09 00:08] LABS: BASOPHILS % 0.6 % (0.0-2.0); EOSINOPHILS % 1.5 % (0.0-5.0); HEMATOCRIT. 31.5 % (36.0-48.0); HEMOGLOBIN. 10.5 g/dL (12.0-16.0); MEAN CORPUSCULAR HEMOGLOBIN 30.8 pg (28.0-32.0); MEAN CORPUSCULAR VOLUME 92.9 fL (81.0-99.0); MEAN PLATELET VOLUME 7.2 fl (7.4-10.4); MONOCYTES % 10.5 % (2.0-8.0); NEUTROPHILS % 65.4 % (40.0-76.0); PLATELET 245 x1000/uL (130-400); RED BLOOD CELL COUNT 3.39 mill/uL (4.2-5.4); RED CELL DISTRIBUTION WIDTH 15.5 % (11.6-14.6)
[2020-04-09 00:15] LABS: CHLORIDE 115 mEq/L (98-107)
[2020-04-09 00:19] LABS: ETHANOL BLOOD < 10 mg/dL
[2020-04-09 00:24] LABS: VALPROIC ACID < 3.0 ug/mL (50-100)
[2020-04-09] MEDS ORDERED: PHENYTOIN SODIUM 100MG/2ML VIAL IV ONE (04:30)
[2020-04-09 04:39] VITALS: BP 165/98
[2020-04-09] MEDS ORDERED: ACETAMINOPHEN 325MG TABLET PO ONE (05:15)
[2020-04-09] MEDS ORDERED: PHENYTOIN SODIUM EXTENDED 100MG CAPSULE PO ONE (06:00)
== END 2020-04-09 07:04 | disposition home or self-care (01) ==
LOC: ER 21:30
DX: R56.9 Unspecified convulsions (principal); F41.9 Anxiety disorder, unspecified; Z79.899 Other long term (current) drug therapy; Z88.8 Allergy status to other drugs, medicaments and biological substances
CPT/HCPCS: 36415; 70450; 80048; 80165; 80185; 80320; 82962; 85025; 96374; 99284; J2060; G0480

== ENCOUNTER 2020-04-09 12:56 | Inpatient (IN) | payer OTHER, MEDICAID ==
[~2020-04-09] VITALS: Ht 160 cm; Wt 54.9 kg
[2020-04-09] MEDS ORDERED: ACETAMINOPHEN 325MG TABLET PO ONE (13:30)
[2020-04-09] MEDS ORDERED: IBUPROFEN 600MG TABLET PO ONE (14:00)
[2020-04-09] MEDS ORDERED: ONDANSETRON HCL 4MG/2ML INJ IV STA (14:38)
[2020-04-09] MEDS ORDERED: MORPHINE SULFATE 4 MG/ML CPJ (NOT FOR IM USE) IV STA (14:38)
[2020-04-09] MEDS ORDERED: SODIUM CHLORIDE 0.9% 1,000 ML IV ONE (14:38)
[2020-04-09 16:36] LABS: BASOPHILS % 0.7 % (0.0-2.0); EOSINOPHILS % 0.5 % (0.0-5.0); HEMATOCRIT. 29.8 % (36.0-48.0); HEMOGLOBIN. 10.2 g/dL (12.0-16.0); LYMPHOCYTES % 16.5 % (20.0-50.0); MEAN CORPUSCULAR HEMOGLOBIN 31.1 pg (28.0-32.0); MEAN CORPUSCULAR VOLUME 91.2 fL (81.0-99.0); MEAN PLATELET VOLUME 7.5 fl (7.4-10.4); MONOCYTES % 7.2 % (2.0-8.0); NEUTROPHILS % 75.1 % (40.0-76.0); PLATELET 238 x1000/uL (130-400); RED BLOOD CELL COUNT 3.27 mill/uL (4.2-5.4); RED CELL DISTRIBUTION WIDTH 15.5 % (11.6-14.6)
[2020-04-09 16:41] LABS: CHLORIDE 113 mEq/L (98-107)
[2020-04-09 16:44] LABS: PARTIAL THROMBOPLASTIN TIME 24.3 sec (23.4-31.0); PROTHROMBIN TIME 11.2 sec (9.6-11.0)
[2020-04-09 16:55] LABS: HCG SCREEN NEGATIVE
[2020-04-09] MEDS ORDERED: MAGNESIUM/ALUMINUM HYDROXIDE/SIMETHICONE 30ML UDC PO PRN (19:45)
[2020-04-09] MEDS ORDERED: CLONIDINE 0.1MG TABLET PO PRN (19:45)
[2020-04-09] MEDS ORDERED: IPRATROPIUM/ALBUTEROL 0.5-3(2.5)MG/3ML NEB HHN PRN (19:45)
[2020-04-09] MEDS ORDERED: ONDANSETRON HCL 4MG/2ML INJ IV PRN (19:45)
[2020-04-09] MEDS ORDERED: MAGNESIUM HYDROXIDE 400MG/5ML 30ML UDC PO PRN (19:45)
[2020-04-09] MEDS ORDERED: LORAZEPAM 2MG/ML CPJ IV PRN (19:45)
[2020-04-09] MEDS ORDERED: DIPHENHYDRAMINE 50MG/ML VIAL IV PRN (19:45)
[2020-04-09] MEDS ORDERED: ACETAMINOPHEN 325MG TABLET PO PRN ×2 (19:45)
[2020-04-09] MEDS ORDERED: ZOLPIDEM TARTRATE 5MG TABLET PO PRN (19:45)
[2020-04-09] MEDS ORDERED: ALPRAZOLAM 0.5 MG TABLET PO PRN (19:45)
[2020-04-09] MEDS ORDERED: POTASSIUM CHLORIDE 20MEQ TABLET SR PO NR (19:45)
[2020-04-09] MEDS ORDERED: KETOROLAC 30MG/ML VIAL IV PRN (19:45)
[2020-04-09 20:07] VITALS: BP 127/76
[2020-04-09] MEDS ORDERED: FAMOTIDINE 20MG TABLET PO SCH (21:00)
[2020-04-09] MEDS: LAMOTRIGINE 100MG TABLET PO SCH (22:36)
[2020-04-09] MEDS: ENOXAPARIN 40MG/0.4ML SYR SUBCUT SCH (22:37)
[2020-04-09] MEDS: SODIUM CHLORIDE 0.9% INJ 3ML FLUSH IVF SCH (22:37)
[2020-04-09] MEDS: MORPHINE SULFATE 2 MG/ML CPJ (NOT FOR IM USE) IV PRN (22:46)
[2020-04-10] VITALS: BP 124/71
[2020-04-10 04:00] VITALS: BP 132/86
[2020-04-10] MEDS: MORPHINE SULFATE 2 MG/ML CPJ (NOT FOR IM USE) IV PRN ×3 (04:11→15:43)
[2020-04-10] MEDS: SODIUM CHLORIDE 0.9% INJ 3ML FLUSH IVF SCH ×3 (05:56→21:06)
[2020-04-10] MEDS: LAMOTRIGINE 100MG TABLET PO SCH ×2 (09:06→21:05)
[2020-04-10] MEDS ORDERED: HYDRALAZINE 10 MG in SODIUM CHLORIDE 0.9% 49.5 ML IV PRN (14:30)
[2020-04-10] MEDS ORDERED: HYDRALAZINE 20MG/ML VIAL IV PRN (14:30)
[2020-04-10] MEDS: DEXT 5%/0.45% NACL 1000ML 1,000 ML IV SCH (15:21)
[2020-04-10] MEDS ORDERED: PROPOFOL 200MG/20ML VIAL IV ONE ×2 (16:41→17:46)
[2020-04-10] MEDS ORDERED: MIDAZOLAM HCL 2 MG/2 ML VIAL ONE ×2 (16:41→17:46)
[2020-04-10] MEDS ORDERED: FENTANYL CITRATE/PF 50MCG/ML 2ML VIAL ONE ×2 (16:41→17:46)
[2020-04-10] MEDS ORDERED: ROCURONIUM BROMIDE 10MG/ML VIAL 5ML IV ONE (16:41)
[2020-04-10] MEDS ORDERED: SUCCINYLCHOLINE CHLORIDE 200MG/10ML IV ONE ×2 (16:42→17:46)
[2020-04-10] MEDS ORDERED: LIDOCAINE HCL/PF 1% 10 MG/ML 5ML VIAL ONE ×2 (16:42→17:46)
[2020-04-10] MEDS ORDERED: CEFAZOLIN SODIUM 1000MG/VIAL ONE (17:46)
[2020-04-10] MEDS ORDERED: NEOSTIGMINE METHYLSULFATE 1MG/ML 10 ML VIAL ONE (17:46)
[2020-04-10] MEDS ORDERED: SODIUM CHLORIDE 0.9% 10ML VIAL ONE (17:46)
[2020-04-10] MEDS ORDERED: METOCLOPRAMIDE HCL 10MG/2ML VIAL ONE (17:46)
[2020-04-10] MEDS ORDERED: ONDANSETRON HCL 4MG/2ML INJ ONE (17:46)
[2020-04-10] MEDS ORDERED: GLYCOPYRROLATE 0.2 MG/ML 2ML VIAL ONE (17:46)
[2020-04-10] MEDS ORDERED: VANCOMYCIN HCL 1 GM/VIAL ONE (18:13)
[2020-04-10] MEDS ORDERED: BUPIVACAINE HCL/EPINEPHRINE/PF 0.5%/0.0005 10ML ONE (18:13)
[2020-04-10] MEDS ORDERED: SODIUM CHLORIDE 0.9% 1,000 ML IV ONE (18:54)
[2020-04-10] MEDS ORDERED: HYDROMORPHONE HCL/PF 2MG/ML CPJ IV PRN (19:00)
[2020-04-10] MEDS ORDERED: MORPHINE SULFATE 2 MG/ML CPJ (NOT FOR IM USE) IV PRN (19:00)
[2020-04-10] MEDS ORDERED: ONDANSETRON HCL 4MG/2ML INJ IV PRN (19:00)
[2020-04-10] MEDS ORDERED: CLONIDINE 0.1MG TABLET PO PRN (19:45)
[2020-04-10] MEDS: FAMOTIDINE 20MG TABLET PO SCH (21:05)
[2020-04-10] MEDS: ENOXAPARIN 40MG/0.4ML SYR SUBCUT SCH (21:05)
[2020-04-10] MEDS ORDERED: CEFAZOLIN SODIUM 1000MG/VIAL IV SCH (22:00)
[2020-04-10] MEDS: HYDROCODONE/ACETAMINOPHEN 5/325MG TABLET PO PRN (22:00)
[2020-04-10] MEDS ORDERED: CEFAZOLIN 2000MG in DEXTROSE 5% WATER 100ML IV SCH (22:00)
[2020-04-10] MEDS: CEFAZOLIN 1000MG PREMIX 50 ML IV SCH (23:34)
[2020-04-11] VITALS: BP 126/74
[2020-04-11] MEDS: HYDROCODONE/ACETAMINOPHEN 5/325MG TABLET PO PRN ×3 (02:47→13:03)
[2020-04-11 04:00] VITALS: BP 107/64
[2020-04-11] MEDS: CEFAZOLIN 1000MG PREMIX 50 ML IV SCH ×2 (06:28→13:04)
[2020-04-11] MEDS: SODIUM CHLORIDE 0.9% INJ 3ML FLUSH IVF SCH ×3 (06:31→22:00)
[2020-04-11 07:26] LABS: BASOPHILS % 0.4 % (0.0-2.0); EOSINOPHILS % 0.6 % (0.0-5.0); HEMATOCRIT. 28.2 % (36.0-48.0); HEMOGLOBIN. 9.4 g/dL (12.0-16.0); LYMPHOCYTES % 19.8 % (20.0-50.0); MEAN CORPUSCULAR HEMOGLOBIN 30.9 pg (28.0-32.0); MEAN CORPUSCULAR VOLUME 93.1 fL (81.0-99.0); MEAN PLATELET VOLUME 7.8 fl (7.4-10.4); MONOCYTES % 7.5 % (2.0-8.0); NEUTROPHILS % 71.7 % (40.0-76.0); PLATELET 250 x1000/uL (130-400); RED BLOOD CELL COUNT 3.03 mill/uL (4.2-5.4); RED CELL DISTRIBUTION WIDTH 15.2 % (11.6-14.6)
[2020-04-11 07:34] LABS: CHLORIDE 113 mEq/L (98-107)
[2020-04-11 07:44] LABS: LDL CHOLESTEROL 121 mg/dL (5-100)
[2020-04-11 07:45] LABS: T4 FREE 0.83 ng/dL (0.76-1.46)
[2020-04-11 07:47] LABS: HDL CHOLESTEROL 49 mg/dL (40-59)
[2020-04-11 08:00] VITALS: BP 152/84
[2020-04-11] MEDS: LAMOTRIGINE 100MG TABLET PO SCH ×2 (09:15→21:57)
[2020-04-11 12:00] VITALS: BP 130/73
[2020-04-11] MEDS ORDERED: POTASSIUM CHLORIDE INJ 40 MEQ in DEXT 5% WATER 250 ML IV SCH (13:00)
[2020-04-11 16:00] VITALS: BP 114/78
[2020-04-11] MEDS: DEXT 5%/0.45% NACL 1000ML 1,000 ML IV SCH (17:42)
[2020-04-11] MEDS: MORPHINE SULFATE 2 MG/ML CPJ (NOT FOR IM USE) IV PRN ×2 (17:43→21:46)
[2020-04-11 20:00] VITALS: BP 130/73
[2020-04-11] MEDS: FAMOTIDINE 20MG TABLET PO SCH (21:45)
[2020-04-11] MEDS: ATORVASTATIN CALCIUM 10MG TABLET PO SCH (21:45)
[2020-04-11] MEDS: ENOXAPARIN 40MG/0.4ML SYR SUBCUT SCH (21:45)
[2020-04-12] VITALS (7 sets, daily range): BP systolic 110–142; BP diastolic 61–91
[2020-04-12] MEDS: MORPHINE SULFATE 2 MG/ML CPJ (NOT FOR IM USE) IV PRN ×2 (02:01→06:23)
[2020-04-12] MEDS: DEXT 5%/0.45% NACL 1000ML 1,000 ML IV SCH ×2 (05:59→19:50)
[2020-04-12] MEDS: SODIUM CHLORIDE 0.9% INJ 3ML FLUSH IVF SCH ×3 (06:10→22:00)
[2020-04-12] MEDS: LAMOTRIGINE 100MG TABLET PO SCH ×2 (09:04→21:26)
[2020-04-12 09:22] LABS: HEMATOCRIT 27.5 % (36.0-48.0); HEMOGLOBIN 9.3 g/dL (12.0-16.0); MEAN CORPUSCULAR HEMOGLOBIN 31.4 pg (28.0-32.0); MEAN CORPUSCULAR VOLUME 92.7 fL (81.0-99.0); PLATELET 270 x1000/uL (130-400); RED BLOOD CELL COUNT 2.97 mill/uL (4.2-5.4); RED CELL DISTRIBUTION WIDTH 15.4 % (11.6-14.6)
[2020-04-12 09:29] LABS: CHLORIDE 109 mEq/L (98-107)
[2020-04-12 09:36] LABS: PHOSPHORUS 2.4 mg/dL (2.5-4.9)
[2020-04-12] MEDS ORDERED: HYDR-4001 MT (14:55)
[2020-04-12] MEDS: HYDROCODONE/ACETAMINOPHEN 5/325MG TABLET PO PRN ×2 (15:54→21:26)
[2020-04-12] MEDS: ENOXAPARIN 40MG/0.4ML SYR SUBCUT SCH (21:25)
[2020-04-12] MEDS: FAMOTIDINE 20MG TABLET PO SCH (21:26)
[2020-04-12] MEDS: ATORVASTATIN CALCIUM 10MG TABLET PO SCH (21:26)
[2020-04-13] VITALS: BP 123/71
[2020-04-13] MEDS: HYDROCODONE/ACETAMINOPHEN 5/325MG TABLET PO PRN (02:18)
[2020-04-13 04:00] VITALS: BP 121/70
[2020-04-13] MEDS: SODIUM CHLORIDE 0.9% INJ 3ML FLUSH IVF SCH (05:49)
[2020-04-13 08:00] VITALS: BP 137/84
[2020-04-13] MEDS: DEXT 5%/0.45% NACL 1000ML 1,000 ML IV SCH (08:38)
[2020-04-13] MEDS: LAMOTRIGINE 100MG TABLET PO SCH (08:46)
[2020-04-13 10:52] VITALS: BP 137/84
[2020-04-17 15:06] LABS: BARBITURATE SCREEN Negative ug/mL (Cutoff:0.1); BENZODIAZEPINE SCREEN Negative ng/mL (Cutoff:20); OPIATES SCREEN ++POSITIVE++ ng/mL (Cutoff:5); PHENCYCLIDINE SCREEN Negative ng/mL (Cutoff:8)
== END 2020-04-13 11:28 | disposition home health service (06) | DRG 481 ==
LOC: ER 12:56 → ENRESERV 19:07 → 6EST 20:12
PROVIDERS: ADMIT Internal Medicine; ATTEND Internal Medicine
PROC: 0QS734Z Reposition Left Upper Femur with Internal Fixation Device, Percutaneous Approach (ICD-10-PCS; principal; 2020-04-10)
DX: S72.035A Nondisplaced midcervical fracture of left femur, initial encounter for closed fracture (principal); E44.1 Mild protein-calorie malnutrition; D64.9 Anemia, unspecified; E78.5 Hyperlipidemia, unspecified; E86.0 Dehydration; E87.6 Hypokalemia; G40.909 Epilepsy, unspecified, not intractable, without status epilepticus; G89.29 Other chronic pain; J45.909 Unspecified asthma, uncomplicated; M19.90 Unspecified osteoarthritis, unspecified site; M79.7 Fibromyalgia; M32.9 Systemic lupus erythematosus, unspecified; F12.90 Cannabis use, unspecified, uncomplicated; F43.10 Post-traumatic stress disorder, unspecified; E11.9 Type 2 diabetes mellitus without complications; F41.9 Anxiety disorder, unspecified; R00.1 Bradycardia, unspecified; M54.9 Dorsalgia, unspecified; W18.39XA Other fall on same level, initial encounter; Y93.89 Activity, other specified; Y92.89 Other specified places as the place of occurrence of the external cause; Y99.8 Other external cause status; Z79.899 Other long term (current) drug therapy; Z88.8 Allergy status to other drugs, medicaments and biological substances
CPT/HCPCS: 36415; 71045; 73502; 73503; 73560; 76000; 80048; 80051; 80053; 80061; 80307; 83735; 84100; 84439; 84443; 84703; 85025; 85027; 86850; 86900; 93005; 93970; 97116; 97162; 97530; 99285; J0171; J0330; J0690; J1650; J2250; J2270; J2405; J2704; J2710; J2765; J3010; J3370; J3480; J3490; J7030; J7060

== ENCOUNTER 2021-03-31 17:14 | Emergency (ER) | payer OTHER, MEDICAID ==
[~2021-03-31] VITALS: Ht 167.6 cm; Wt 69.0 kg
[~2021-03-31 17:14] MED LIST changes: +HYDR-4001 MT; -PANT40TA4 PO; +PANT40TA51 PO
[2021-03-31] MEDS ORDERED: SODIUM CHLORIDE 0.9% 1000ML BAG (SEPSIS BOLUS) IV ONE (18:00)
[2021-03-31] MEDS ORDERED: CEFTRIAXONE 1 G PREMIX 50 ML IV ONE (18:00)
[2021-03-31] MEDS ORDERED: ACETAMINOPHEN 325MG TABLET PO ONE (21:15)
[2021-03-31 21:25] VITALS: BP 127/71
[2021-03-31] MEDS ORDERED: IBUPROFEN 400MG TABLET PO ONE (21:30)
== END 2021-03-31 21:58 | disposition home or self-care (01) ==
LOC: ER 17:14
DX: R55 Syncope and collapse (principal); F41.9 Anxiety disorder, unspecified; M32.9 Systemic lupus erythematosus, unspecified; E11.9 Type 2 diabetes mellitus without complications; I51.9 Heart disease, unspecified; G40.909 Epilepsy, unspecified, not intractable, without status epilepticus; Z96.642 Presence of left artificial hip joint; Z91.09 Other allergy status, other than to drugs and biological substances
CPT/HCPCS: 71045; 99283; J7030

== ENCOUNTER 2022-06-11 11:21 | Emergency (ER) | payer OTHER, MEDICAID ==
[~2022-06-11] VITALS: Ht 162.6 cm; Wt 75.0 kg
[2022-06-11] MEDS ORDERED: SODIUM CHLORIDE 0.9% 1,000 ML IV ONE (11:45)
[2022-06-11] MEDS ORDERED: ONDANSETRON HCL 4MG/2ML INJ IV ONE (11:45)
[2022-06-11] MEDS ORDERED: ACETAMINOPHEN 325MG TABLET PO ONE (11:45)
[2022-06-11 12:50] LABS: BASOPHILS % 1.1 % (0.0-2.0); EOSINOPHILS % 1.8 % (0.0-5.0); HEMATOCRIT. 33.2 % (36.0-48.0); HEMOGLOBIN. 11.5 g/dL (12.0-16.0); LYMPHOCYTES % 30.5 % (20.0-50.0); MEAN CORPUSCULAR HEMOGLOBIN 30.6 pg (28.0-32.0); MEAN CORPUSCULAR VOLUME 87.9 fL (81.0-99.0); MEAN PLATELET VOLUME 7.8 fl (7.4-10.4); MONOCYTES % 8.5 % (2.0-8.0); NEUTROPHILS % 58.1 % (40.0-76.0); PLATELET 281 x1000/uL (130-400); RED BLOOD CELL COUNT 3.78 mill/uL (4.2-5.4); RED CELL DISTRIBUTION WIDTH 17.5 % (11.6-14.6)
[2022-06-11 12:58] LABS: CHLORIDE 108 mEq/L (98-107)
[2022-06-11 13:06] LABS: ETHANOL BLOOD < 10 mg/dL
[2022-06-11 14:36] LABS: CLARITY URINE CLEAR (CLEAR); COLOR URINE YELLOW (YELLOW); KETONES URINE NEGATIVE (NEGATIVE); LEUKOCYTE ESTERASE URINE TRACE (NEGATIVE); NITRITE URINE NEGATIVE (NEGATIVE); OCCULT BLOOD URINE NEGATIVE (NEGATIVE); PROTEIN URINE NEGATIVE (NEGATIVE); SPECIFIC GRAVITY URINE 1.005 (1.005-1.030); UROBILINOGEN URINE 0.2 E.U./dL (0.2-1.0)
[2022-06-11 14:47] LABS: *AMPHETAMINES SCREEN URINE NEGATIVE (NEGATIVE); *BARBITURATES SCREEN URINE NEGATIVE (NEGATIVE); *BENZODIAZEPINES SCREEN URINE NEGATIVE (NEGATIVE); *COCAINE SCREEN URINE NEGATIVE (NEGATIVE); METHADONE URINE SCREEN NEGATIVE (NEGATIVE); OPIATES URINE SCREEN NEGATIVE (NEGATIVE); PHENCYCLIDINE URINE SCREEN NEGATIVE (NEGATIVE)
[2022-06-11 14:49] LABS: CANNABINOID URINE SCREEN PRESUMTIVE POSITIVE (NEGATIVE)
[2022-06-11 14:50] LABS: HCG SCREEN INDETERMINATE
[2022-06-11 16:05] VITALS: BP 125/80
== END 2022-06-11 16:50 | disposition home or self-care (01) ==
LOC: ER 11:30
DX: R56.9 Unspecified convulsions (principal); D64.9 Anemia, unspecified; E11.9 Type 2 diabetes mellitus without complications; Z91.19 Patient's noncompliance with other medical treatment and regimen; Z91.048 Other nonmedicinal substance allergy status; Z79.899 Other long term (current) drug therapy; Z13.9 Encounter for screening, unspecified
CPT/HCPCS: 36415; 80053; 80305; 80320; 81003; 82962; 83690; 84702; 84703; 85025; 96361; 96374; 99283; J2405; J7030; G0480

== ENCOUNTER 2022-07-01 09:23 | Emergency (ER) | payer MEDICARE, MEDICAID ==
[~2022-07-01] VITALS: Ht 160 cm; Wt 65.0 kg
[~2022-07-01 09:23] MED LIST changes: -HYDR200T35 PO
[2022-07-01 09:47] VITALS: BP 112/65
[2022-07-01] MEDS ORDERED: IBUPROFEN 600MG TABLET PO STA (09:53)
[2022-07-01 10:39] LABS: CLARITY URINE CLOUDY (CLEAR); COLOR URINE YELLOW (YELLOW); KETONES URINE NEGATIVE (NEGATIVE); LEUKOCYTE ESTERASE URINE TRACE (NEGATIVE); NITRITE URINE NEGATIVE (NEGATIVE); OCCULT BLOOD URINE NEGATIVE (NEGATIVE); PROTEIN URINE NEGATIVE (NEGATIVE); SPECIFIC GRAVITY URINE 1.013 (1.005-1.030)
[2022-07-01] MEDS ORDERED: IBUP-2028 MT (11:32)
== END 2022-07-01 11:55 | disposition home or self-care (01) ==
LOC: ER 09:23
DX: S63.591A Other specified sprain of right wrist, initial encounter (principal); E86.0 Dehydration; E11.9 Type 2 diabetes mellitus without complications; M32.9 Systemic lupus erythematosus, unspecified; I51.9 Heart disease, unspecified; G40.909 Epilepsy, unspecified, not intractable, without status epilepticus; M79.7 Fibromyalgia; F41.9 Anxiety disorder, unspecified; Z88.8 Allergy status to other drugs, medicaments and biological substances; W06.XXXA Fall from bed, initial encounter; Y93.89 Activity, other specified; Y92.018 Other place in single-family (private) house as the place of occurrence of the external cause
CPT/HCPCS: 29125; 73110; 81003; 81025; 82962; 99283

== ENCOUNTER 2022-09-25 22:40 | Emergency (ER) | payer MEDICARE ==
[~2022-09-25] VITALS: Ht 167.6 cm; Wt 77.0 kg
[~2022-09-25 22:40] MED LIST changes: +IBUP-2028 MT
[2022-09-25] MEDS ORDERED: ASPIRIN 81MG TABLET PO ONE (23:15)
[2022-09-25 23:41] LABS: HEMATOCRIT. 34.8 % (36.0-48.0); HEMOGLOBIN. 11.4 g/dL (12.0-16.0); MEAN CORPUSCULAR HEMOGLOBIN 30.9 pg (28.0-32.0); MEAN PLATELET VOLUME 7.7 fl (7.4-10.4); PLATELET 167 x1000/uL (130-400); RED CELL DISTRIBUTION WIDTH 17.2 % (11.6-14.6)
[2022-09-25 23:45] LABS: CHLORIDE 110 mEq/L (98-107)
[2022-09-26 02:24] LABS: PLATELET ESTIMATE NORMAL
[2022-09-26] MEDS ORDERED: ASPIRIN 81MG TABLET ONE (03:52)
[2022-09-26 05:12] VITALS: BP 132/81
== END 2022-09-26 05:28 | disposition home or self-care (01) ==
LOC: ER 22:40
DX: R07.89 Other chest pain (principal); F41.9 Anxiety disorder, unspecified; E11.9 Type 2 diabetes mellitus without complications; G40.909 Epilepsy, unspecified, not intractable, without status epilepticus; I51.9 Heart disease, unspecified; M32.9 Systemic lupus erythematosus, unspecified; M79.7 Fibromyalgia; Z20.822 Contact with and (suspected) exposure to COVID-19; Z88.8 Allergy status to other drugs, medicaments and biological substances
CPT/HCPCS: 36415; 71045; 80053; 83880; 84484; 85025; 93005; 99285

== ENCOUNTER 2023-08-16 13:25 | Emergency (ER) | payer BC, MEDICAID ==
[~2023-08-16] VITALS: Ht 160 cm; Wt 59.0 kg
[2023-08-16 13:34] VITALS: BP 113/71; PULSE 85; RESP 16; TEMP 99; O2SAT 100
[2023-08-16 14:42] LABS: EOSINOPHILS % 1.6 % (0.0-5.0); HEMATOCRIT. 37.1 % (36.0-48.0); HEMOGLOBIN. 12.4 g/dL (12.0-16.0); LYMPHOCYTES % 46.4 % (20.0-50.0); MEAN CORPUSCULAR HEMOGLOBIN 32.2 pg (28.0-32.0); MEAN CORPUSCULAR HGB CONC 33.6 g/dL (31.0-37.0); MEAN PLATELET VOLUME 7.6 fl (7.4-10.4); MONOCYTES % 8.1 % (2.0-8.0); NEUTROPHILS % 42.9 % (40.0-76.0); PLATELET 230 x1000/uL (130-400); RED BLOOD CELL COUNT 3.86 mill/uL (4.2-5.4); RED CELL DISTRIBUTION WIDTH 14.5 % (11.6-14.6); WHITE BLOOD COUNT 5.8 x1000/uL (4.5-11.0)
[2023-08-16 14:45] LABS: CLARITY URINE CLOUDY (CLEAR); COLOR URINE YELLOW (YELLOW); GLUCOSE URINE NEGATIVE (NEGATIVE); KETONES URINE NEGATIVE (NEGATIVE); LEUKOCYTE ESTERASE URINE NEGATIVE (NEGATIVE); NITRITE URINE NEGATIVE (NEGATIVE); OCCULT BLOOD URINE NEGATIVE (NEGATIVE); PH URINE 7.5 (4.5-8.0); PROTEIN URINE NEGATIVE (NEGATIVE); UROBILINOGEN URINE 0.2 E.U./dL (0.2-1.0)
[2023-08-16 14:51] LABS: BACTERIA URINE 1+; SQUAMOUS EPITHELIAL CELL URINE 1+ /lpf (RARE/1+); WBC URINE 0-2 /hpf (0-2); YEAST URINE NONE SEEN
[2023-08-16 15:20] LABS: RBC URINE 0-2 /hpf (0-2)
[2023-08-16 15:56] LABS: CHLORIDE 107 mEq/L (98-107); INDEX HEMOLYSI 1 (1-3); INDEX ICTERIC 1 (1-4); INDEX LIPEMIC 1 (1-3); SODIUM 139 mEq/L (136-145)
[2023-08-16 16:10] LABS: ALANINE AMINOTRANSFERASE 11 IU/L (13-61); ALBUMIN 3.7 g/dL (3.4-5.0); ASPARTATE AMINOTRANSFERASE 11 IU/L (15-37); BILIRUBIN TOTAL 0.3 mg/dL (0.1-1.0); CALCIUM 9.1 mg/dL (8.5-10.1); CARBON DIOXIDE 22 mEq/L (21-32); CREATININE 0.9 mg/dL (0.6-1.3); GLUCOSE 83 mg/dL (70-105); PROTEIN TOTAL 7.1 g/dL (6.0-8.3); TROPONIN I HIGH SENSITIVITY 4 ng/L (<54); UREA NITROGEN BLOOD 7 mg/dL (7-21)
== END 2023-08-16 17:56 | disposition left against medical advice (07) ==
LOC: ER 13:48
DX: R11.0 Nausea (principal); R05.9 Cough, unspecified; R09.81 Nasal congestion; F41.9 Anxiety disorder, unspecified; E11.9 Type 2 diabetes mellitus without complications; I20.9 Angina pectoris, unspecified; Z79.899 Other long term (current) drug therapy
CPT/HCPCS: 36415; 71045; 80053; 81003; 81025; 84484; 85025; 93005; 99285

== ENCOUNTER 2024-10-11 17:22 | Emergency (ER) | payer BC, MEDICAID ==
[~2024-10-11] VITALS: Ht 160 cm; Wt 64.0 kg
[2024-10-11 17:41] VITALS: BP 139/81; PULSE 63; RESP 16; TEMP 98.6; O2SAT 99
[2024-10-11] MEDS ORDERED: NIRM1TAB8 PO (18:44)
[2024-10-11] MEDS ORDERED: P50 MT (18:46)
[2024-10-11] MEDS ORDERED: FAMO-135 MT (18:46)
[2024-10-11] MEDS ORDERED: SENN-215 MT (18:47)
== END 2024-10-11 19:19 | disposition home or self-care (01) ==
LOC: ER 17:22
DX: U07.1 COVID-19 (principal); E11.9 Type 2 diabetes mellitus without complications; F41.9 Anxiety disorder, unspecified; Z79.899 Other long term (current) drug therapy
CPT/HCPCS: 99283

== ENCOUNTER 2024-11-28 08:55 | Emergency (ER) | payer BC, MEDICAID ==
[~2024-11-28] VITALS: Ht 160 cm; Wt 66.0 kg
[~2024-11-28 08:55] MED LIST changes: +FAMO-135 MT; +NIRM1TAB8 PO; +P50 MT; +SENN-215 MT
[2024-11-28 08:58] VITALS: O2SAT 98
[2024-11-28 09:04] VITALS: BP 133/70; PULSE 88; RESP 16; TEMP 98.6; O2SAT 98
[2024-11-28 11:05] LABS: BASOPHILS % 0.8 % (0.0-2.0); EOSINOPHILS % 0.8 % (0.0-5.0); HEMATOCRIT. 39.6 % (36.0-48.0); HEMOGLOBIN. 13.1 g/dL (12.0-16.0); LYMPHOCYTES % 46.3 % (20.0-50.0); MEAN CORPUSCULAR HEMOGLOBIN 32.2 pg (28.0-32.0); MEAN CORPUSCULAR VOLUME 97.7 fL (81.0-99.0); MEAN PLATELET VOLUME 7.9 fl (7.4-10.4); MONOCYTES % 7.2 % (2.0-8.0); NEUTROPHILS % 44.9 % (40.0-76.0); PLATELET 187 x1000/uL (130-400); RED BLOOD CELL COUNT 4.05 mill/uL (4.2-5.4); RED CELL DISTRIBUTION WIDTH 14.7 % (11.6-14.6); WHITE BLOOD COUNT 4.1 x1000/uL (4.5-11.0)
[2024-11-28 11:09] LABS: CHLORIDE 111 mEq/L (98-107); SODIUM 143 mEq/L (136-145)
[2024-11-28 11:10] LABS: CARBON DIOXIDE 25 mEq/L (21-32)
[2024-11-28 11:11] LABS: CALCIUM 9.9 mg/dL (8.7-10.4)
[2024-11-28 11:15] LABS: GLUCOSE 90 mg/dL (70-105); UREA NITROGEN BLOOD 12 mg/dL (9-23)
[2024-11-28 11:17] LABS: HCG SCREEN INDETERMINATE; TROPONIN I HIGH SENSITIVITY < 4 ng/L (3.0-34)
[2024-11-28] MEDS ORDERED: ACETAMINOPHEN 325MG TABLET PO PRN (15:15)
[2024-11-28] MEDS ORDERED: DEXTROSE 50% WATER 50ML SYRINGE IV PRN ×2 (15:15→16:00)
[2024-11-28] MEDS ORDERED: IPRATROPIUM/ALBUTEROL 0.5-3(2.5)MG/3ML NEB NEB PRN (15:15)
[2024-11-28] MEDS ORDERED: CLONIDINE 0.1MG TABLET PO PRN (15:15)
[2024-11-28] MEDS ORDERED: ZOLPIDEM TARTRATE 5MG TABLET PO PRN (15:15)
[2024-11-28] MEDS ORDERED: ONDANSETRON HCL 4MG/2ML INJ IV PRN (15:15)
[2024-11-28] MEDS ORDERED: LORAZEPAM 1MG TABLET PO PRN (15:30)
[2024-11-28] MEDS ORDERED: BLOOD SUGAR DIAGNOSTIC STRIP TEST SCH ×2 (17:00)
[2024-11-28] MEDS ORDERED: INSULIN LISPRO (PRANDIAL)100 UNITS/ML SUBCUT SCH (17:50)
[2024-11-28] MEDS ORDERED: INSULIN REGULAR HUMAN (HIGH DOSE) 100 UNITS/ML 3ML VIAL SUBCUT SCH (18:20)
[2024-11-28] MEDS ORDERED: INSULIN LISPRO (HIGH DOSE) 100 UNITS/ML SUBCUT SCH (18:20)
[2024-11-28] MEDS ORDERED: INSULIN REGULAR HUMAN (CUSTOM DOSE) 100 UNITS/ML 3ML VIAL SUBCUT SCH (18:20)
[2024-11-28] MEDS ORDERED: INSULIN LISPRO (CUSTOM DOSE) 100 UNITS/ML SUBCUT SCH (18:20)
[2024-11-28] MEDS ORDERED: INSULIN LISPRO (MEDIUM DOSE) 100 UNITS/ML SUBCUT SCH (18:20)
[2024-11-28] MEDS ORDERED: INSULIN LISPRO (LOW DOSE) 100 UNITS/ML SUBCUT SCH (18:20)
[2024-11-28] MEDS ORDERED: INSULIN REGULAR HUMAN (MEDIUM DOSE) 100 UNITS/ML 3ML VIAL SUBCUT SCH (18:20)
[2024-11-28] MEDS ORDERED: INSULIN REGULAR HUMAN (LOW DOSE) 100 UNITS/ML 3ML VIAL SUBCUT SCH (18:20)
[2024-11-28] MEDS ORDERED: LEVETIRACETAM 500MG/5ML CUP PO SCH (21:00)
[2024-11-28] MEDS ORDERED: BUSPIRONE HCL 5MG TABLET PO SCH (21:00)
[2024-11-28] MEDS ORDERED: FAMOTIDINE(NEO) 1MG/ML SUSP PO SCH (21:00)
[2024-11-28] MEDS ORDERED: DOXEPIN HCL 25MG CAPSULE PO SCH (21:00)
[2024-11-28] MEDS ORDERED: GABAPENTIN 100MG CAPSULE PO SCH (22:00)
[2024-11-28] MEDS ORDERED: INSULIN GLARGINE 100 UNITS/ML SUBCUT SCH (22:00)
[2024-11-29] MEDS ORDERED: INSULIN LISPRO 100 UNITS/ML SUBCUT SCH (07:50)
[2024-11-29] MEDS ORDERED: PAROXETINE HCL 10MG TABLET PO SCH (09:00)
[2024-11-29] MEDS ORDERED: ENOXAPARIN 40MG/0.4ML SYR SUBCUT SCH (09:00)
[2024-11-29] MEDS ORDERED: PREDNISONE 5MG TABLET PO SCH (09:00)
[2024-11-29] MEDS ORDERED: PANTOPRAZOLE SODIUM 40 MG/VIAL IV SCH (09:00)
[2024-11-29] MEDS ORDERED: PANTOPRAZOLE 40MG DR TABLET PO SCH (09:00)
[2024-11-29] MEDS ORDERED: FUROSEMIDE 20MG TABLET PO SCH (09:00)
== END 2024-11-28 16:44 | disposition left against medical advice (07) ==
LOC: ER 08:55 → EDBEDREQ 09:48 → EDBEDREQTM 11:40 → EDBEDREQ 11:40 → ER 16:44
DX: S00.511A Abrasion of lip, initial encounter (principal); S09.90XA Unspecified injury of head, initial encounter; R51.9 Headache, unspecified; R42 Dizziness and giddiness; R06.02 Shortness of breath; H92.02 Otalgia, left ear; R00.1 Bradycardia, unspecified; M19.90 Unspecified osteoarthritis, unspecified site; M79.7 Fibromyalgia; I25.10 Atherosclerotic heart disease of native coronary artery without angina pectoris; I10 Essential (primary) hypertension; G40.909 Epilepsy, unspecified, not intractable, without status epilepticus; F20.9 Schizophrenia, unspecified; J45.909 Unspecified asthma, uncomplicated; Z79.3 Long term (current) use of hormonal contraceptives; Z79.899 Other long term (current) drug therapy; Z79.52 Long term (current) use of systemic steroids; Z86.16 Personal history of COVID-19; X58.XXXA Exposure to other specified factors, initial encounter; Y93.89 Activity, other specified; Y92.89 Other specified places as the place of occurrence of the external cause; Y99.8 Other external cause status
CPT/HCPCS: 36415; 71045; 80048; 84484; 84702; 84703; 85025; 93005; 99291

== ENCOUNTER 2024-12-03 15:30 | Emergency (ER) | payer BC, MEDICAID ==
[~2024-12-03] VITALS: Ht 160 cm; Wt 64.4 kg
[2024-12-03 15:50] VITALS: BP 169/85; PULSE 45; RESP 16; TEMP 97.9; O2SAT 100
[2024-12-03] MEDS ORDERED: ACETAMINOPHEN 325MG TABLET PO STA (19:11)
[2024-12-03 21:10] LABS: BASOPHILS % 0.6 % (0.0-2.0); EOSINOPHILS % 0.4 % (0.0-5.0); HEMATOCRIT. 41.8 % (36.0-48.0); HEMOGLOBIN. 13.8 g/dL (12.0-16.0); LYMPHOCYTES % 37.6 % (20.0-50.0); MEAN CORPUSCULAR HEMOGLOBIN 31.9 pg (28.0-32.0); MEAN CORPUSCULAR VOLUME 96.8 fL (81.0-99.0); MEAN PLATELET VOLUME 7.5 fl (7.4-10.4); MONOCYTES % 9.5 % (2.0-8.0); NEUTROPHILS % 51.9 % (40.0-76.0); PLATELET 220 x1000/uL (130-400); RED BLOOD CELL COUNT 4.32 mill/uL (4.2-5.4); RED CELL DISTRIBUTION WIDTH 14.8 % (11.6-14.6); WHITE BLOOD COUNT 5.9 x1000/uL (4.5-11.0)
[2024-12-03 21:18] LABS: CHLORIDE 110 mEq/L (98-107); POTASSIUM 3.8 mEq/L (3.5-5.1); SODIUM 142 mEq/L (136-145)
[2024-12-03 21:19] LABS: CALCIUM 10.2 mg/dL (8.7-10.4); CARBON DIOXIDE 26 mEq/L (21-32)
[2024-12-03 21:24] LABS: CREATININE 0.9 mg/dL (0.6-1.0); GLUCOSE 99 mg/dL (70-105); UREA NITROGEN BLOOD 12 mg/dL (9-23)
[2024-12-03 21:43] LABS: CLARITY URINE CLOUDY (CLEAR); COLOR URINE YELLOW (YELLOW); GLUCOSE URINE NEGATIVE (NEGATIVE); KETONES URINE 2+ (NEGATIVE); LEUKOCYTE ESTERASE URINE TRACE (NEGATIVE); NITRITE URINE NEGATIVE (NEGATIVE); OCCULT BLOOD URINE NEGATIVE (NEGATIVE); PH URINE 6.5 (4.5-8.0); PROTEIN URINE 1+ (NEGATIVE)
[2024-12-03 21:46] LABS: HCG SCREEN INDETERMINATE
[2024-12-03 22:00] LABS: BACTERIA URINE 1+; RBC URINE 0-2 /hpf (0-2); SQUAMOUS EPITHELIAL CELL URINE 2+ /lpf (RARE/1+)
[2024-12-03] MEDS: ACETAMINOPHEN 325MG TABLET PO NR (22:45)
[2024-12-03] MEDS ORDERED: NITR-87 MT (22:59)
== END 2024-12-03 23:15 | disposition home or self-care (01) ==
LOC: ER 15:30
DX: N30.00 Acute cystitis without hematuria (principal); E11.9 Type 2 diabetes mellitus without complications; F20.9 Schizophrenia, unspecified; F41.9 Anxiety disorder, unspecified; G40.909 Epilepsy, unspecified, not intractable, without status epilepticus; Z79.899 Other long term (current) drug therapy
CPT/HCPCS: 36415; 80048; 81003; 84702; 84703; 85025; 99283

== ENCOUNTER 2025-01-03 22:55 | Emergency (ER) | payer BC, MEDICAID ==
[~2025-01-03] VITALS: Ht 160 cm; Wt 64.0 kg
[~2025-01-03 22:55] MED LIST changes: +NITR-87 MT
[2025-01-03 23:02] VITALS: O2SAT 99
[2025-01-03] MEDS: ONDANSETRON 4MG ODT PO STA (23:15)
[2025-01-04] LABS: EOSINOPHILS % 1.4 % (0.0-5.0); HEMATOCRIT. 38.8 % (36.0-48.0); HEMOGLOBIN. 13.2 g/dL (12.0-16.0); LYMPHOCYTES % 48.8 % (20.0-50.0); MEAN CORPUSCULAR HEMOGLOBIN 32.3 pg (28.0-32.0); MEAN CORPUSCULAR HGB CONC 33.9 g/dL (31.0-37.0); MEAN CORPUSCULAR VOLUME 95.2 fL (81.0-99.0); MEAN PLATELET VOLUME 7.3 fl (7.4-10.4); NEUTROPHILS % 39.8 % (40.0-76.0); PLATELET 205 x1000/uL (130-400); RED BLOOD CELL COUNT 4.08 mill/uL (4.2-5.4); RED CELL DISTRIBUTION WIDTH 14.3 % (11.6-14.6); WHITE BLOOD COUNT 4.9 x1000/uL (4.5-11.0)
[2025-01-04 00:05] LABS: CHLORIDE 103 mEq/L (98-107); POTASSIUM 3.3 mEq/L (3.5-5.1); SODIUM 139 mEq/L (136-145)
[2025-01-04 00:06] LABS: CALCIUM 10.1 mg/dL (8.7-10.4); CARBON DIOXIDE 29 mEq/L (21-32)
[2025-01-04 00:11] LABS: CREATININE 1.1 mg/dL (0.6-1.0); GLUCOSE 85 mg/dL (70-105); UREA NITROGEN BLOOD 14 mg/dL (9-23)
[2025-01-04 00:13] LABS: ALANINE AMINOTRANSFERASE 9 IU/L (10-49); ALBUMIN 4.4 g/dL (3.2-4.8); ASPARTATE AMINOTRANSFERASE 21 IU/L (<34); BILIRUBIN TOTAL 0.3 mg/dL (0.1-1.0)
[2025-01-04 00:19] LABS: BILIRUBIN DIRECT < 0.1 mg/dL (<=3.0)
[2025-01-04 00:43] LABS: HCG SCREEN INDETERMINATE
[2025-01-04] MEDS: ONDANSETRON 4MG ODT PO NR (00:54)
[2025-01-04 03:28] LABS: CLARITY URINE CLEAR (CLEAR); COLOR URINE YELLOW (YELLOW); GLUCOSE URINE NEGATIVE (NEGATIVE); KETONES URINE NEGATIVE (NEGATIVE); LEUKOCYTE ESTERASE URINE 1+ (NEGATIVE); NITRITE URINE NEGATIVE (NEGATIVE); OCCULT BLOOD URINE NEGATIVE (NEGATIVE); PROTEIN URINE NEGATIVE (NEGATIVE); SPECIFIC GRAVITY URINE 1.016 (1.005-1.030); UROBILINOGEN URINE 0.2 E.U./dL (0.2-1.0)
[2025-01-04 03:44] LABS: SQUAMOUS EPITHELIAL CELL URINE 1+ /lpf (RARE/1+)
[2025-01-04 03:45] LABS: RBC URINE 0-2 /hpf (0-2); WBC URINE 0-2 /hpf (0-2)
[2025-01-04 03:46] LABS: BACTERIA URINE 1+
[2025-01-04] MEDS ORDERED: ONDA4TAB50 MT (03:52)
[2025-01-04 04:11] VITALS: BP 121/75; PULSE 60; RESP 18; TEMP 36.7; O2SAT 99
== END 2025-01-04 04:12 | disposition home or self-care (01) ==
LOC: ER 23:15
DX: B34.9 Viral infection, unspecified (principal); R11.2 Nausea with vomiting, unspecified; E11.9 Type 2 diabetes mellitus without complications; F20.9 Schizophrenia, unspecified; F41.9 Anxiety disorder, unspecified; M19.90 Unspecified osteoarthritis, unspecified site; M79.7 Fibromyalgia; Z79.3 Long term (current) use of hormonal contraceptives; Z79.899 Other long term (current) drug therapy; Z96.649 Presence of unspecified artificial hip joint
CPT/HCPCS: 99285; 71045; 80076; 80048; 84703; 85025; 36415; 93005; 81003; Q0162

== ENCOUNTER 2025-05-27 18:21 | Emergency (ER) | payer BC, MEDICAID ==
[~2025-05-27] VITALS: Ht 160 cm; Wt 74.8 kg
[~2025-05-27 18:21] MED LIST changes: -HYDR-4001 MT; -IBUP-2028 MT; -IBUP-2029 PO; +KEPP500 MT; -LEVO5TAB13 PO; -LORA1TAB PO; -MEDR5TAB4 PO; +NIRM1TAB11 PO; -NIRM1TAB8 PO; -NITR-87 MT; -P50 MT; -POTA8CAP20 PO; -SENN-215 MT
[2025-05-27 18:26] VITALS: BP 139/84; PULSE 69; RESP 16; TEMP 37.1; O2SAT 100
[2025-05-27 19:45] LABS: CLARITY URINE CLEAR (CLEAR); GLUCOSE URINE NEGATIVE (NEGATIVE); KETONES URINE TRACE (NEGATIVE); LEUKOCYTE ESTERASE URINE NEGATIVE (NEGATIVE); NITRITE URINE NEGATIVE (NEGATIVE); OCCULT BLOOD URINE NEGATIVE (NEGATIVE); PH URINE 7.5 (4.5-8.0); PROTEIN URINE 1+ (NEGATIVE); SPECIFIC GRAVITY URINE 1.031 (1.005-1.030)
[2025-05-27 20:02] LABS: CHLORIDE 107 mEq/L (98-107); POTASSIUM 3.6 mEq/L (3.5-5.1); SODIUM 141 mEq/L (136-145)
[2025-05-27 20:03] LABS: CALCIUM 9.4 mg/dL (8.7-10.4); CARBON DIOXIDE 23 mEq/L (21-32)
[2025-05-27 20:07] LABS: EOSINOPHILS % 1.2 % (0.0-5.0); HEMATOCRIT. 40.2 % (36.0-48.0); HEMOGLOBIN. 13.4 g/dL (12.0-16.0); LYMPHOCYTES % 52.6 % (20.0-50.0); MEAN CORPUSCULAR HEMOGLOBIN 31.6 pg (28.0-32.0); MEAN CORPUSCULAR HGB CONC 33.2 g/dL (31.0-37.0); MONOCYTES % 6.8 % (2.0-8.0); NEUTROPHILS % 38.4 % (40.0-76.0); RED BLOOD CELL COUNT 4.23 mill/uL (4.2-5.4); RED CELL DISTRIBUTION WIDTH 14.5 % (11.6-14.6); WHITE BLOOD COUNT 5.6 x1000/uL (4.5-11.0)
[2025-05-27 20:08] LABS: CREATININE 1.2 mg/dL (0.6-1.0); GLUCOSE 69 mg/dL (70-105)
[2025-05-27 20:09] LABS: DIFFERENTIAL COMMENT 1; ETHANOL BLOOD < 10 mg/dL (<10); TROPONIN I HIGH SENSITIVITY < 4 ng/L (3.0-34); UREA NITROGEN BLOOD 10 mg/dL (9-23)
[2025-05-27 20:10] LABS: ALANINE AMINOTRANSFERASE 10 IU/L (10-49); ALBUMIN 4.7 g/dL (3.2-4.8); ASPARTATE AMINOTRANSFERASE 21 IU/L (<34); BILIRUBIN DIRECT < 0.1 mg/dL (<=3.0)
[2025-05-27 20:11] LABS: BILIRUBIN TOTAL 0.3 mg/dL (0.1-1.0); PROTEIN TOTAL 7.4 g/dL (6.0-8.3)
[2025-05-27 20:13] LABS: COLOR URINE YELLOW (YELLOW); RBC URINE NONE SEEN /hpf (0-2); WBC URINE 0-2 /hpf (0-2)
[2025-05-27 20:14] LABS: BACTERIA URINE TRACE; SQUAMOUS EPITHELIAL CELL URINE 1+ /lpf (RARE/1+); TRIPLE PHOSPHATE CRYSTAL URINE 1+ /lpf
[2025-05-27 20:15] LABS: MUCUS URINE 1+ /lpf (< = 2+)
[2025-05-27 20:21] LABS: MEAN PLATELET VOLUME 8.7 fl (7.4-10.4); PLATELET 208 x1000/uL (130-400)
[2025-06-24] MEDS ORDERED: DULO60CA64 PO (06:16)
[2025-06-24] MEDS ORDERED: QUET150T20 PO ×2 (06:16→14:46)
[2025-06-24] MEDS ORDERED: MELO-106 PO (14:45)
[2025-06-24] MEDS ORDERED: ROPI3TAB21 PO (14:45)
[2025-06-24] MEDS ORDERED: TOPI-253 PO (14:45)
[2025-06-24] MEDS ORDERED: FLUT16SP15 NAS (14:45)
[2025-06-24] MEDS ORDERED: GABA-529 PO (14:45)
[2025-06-24] MEDS ORDERED: ERYT-139 PO (14:45)
[2025-06-24] MEDS ORDERED: FOLI-43 PO (14:45)
[2025-06-24] MEDS ORDERED: FLUT1BLS9 PO (14:45)
[2025-06-24] MEDS ORDERED: DIVA-131 PO (14:45)
[2025-06-24] MEDS ORDERED: NIFE10CA59 PO (14:46)
[2025-06-24] MEDS ORDERED: ALBU18HF2 PO (14:46)
[2025-06-28] MEDS ORDERED: KEPP500 PO (14:12)
[2025-06-28] MEDS ORDERED: DIVA-18 PO (14:12)
[2025-06-28] MEDS ORDERED: PREG75CA PO (14:14)
[2025-06-28] MEDS ORDERED: HYDR200T35 PO (14:15)
[2025-06-28] MEDS ORDERED: PILO5TAB17 PO (14:25)
[2025-06-28] MEDS ORDERED: PILO15DR36 BOTHEYE (14:25)
[2025-06-28] MEDS ORDERED: PRED10TA PO (14:25)
[2025-06-28] MEDS ORDERED: P20 MT (14:29)
== END 2025-05-27 22:31 | disposition left against medical advice (07) ==
LOC: ER 18:21
DX: R56.9 Unspecified convulsions (principal); Z53.21 Procedure and treatment not carried out due to patient leaving prior to being seen by health care provider
CPT/HCPCS: 36415; 80048; 80076; 80320; 81003; 81025; 82962; 84484; 85025; 93005; 99284; G0480

== ENCOUNTER 2025-09-02 08:09 | Emergency (ER) | payer BC, MEDICAID ==
[~2025-09-02] VITALS: Ht 160 cm; Wt 79.0 kg
[~2025-09-02 08:09] MED LIST changes: +ALBU18HF2 PO; -BUSP15TA3 PO; +DIVA-131 PO; +DIVA-18 PO; -DOXE50CA4 PO; +DULO60CA64 PO; +ERYT-139 PO; -FAMO-135 MT; +FLUT16SP15 NAS; +FLUT1BLS9 PO; +FOLI-43 PO; -FURO20TA4 PO; -GABA-290 PO; +GABA-529 PO; +HYDR200T35 PO; -KEPP500 MT; +KEPP500 PO; -NIRM1TAB11 PO; +P20 MT; -PANT40TA51 PO; -PARO40TA75 PO; +PILO15DR36 BOTHEYE; +PILO5TAB17 PO; +PRED10TA PO; +PREG75CA PO; +QUET150T20 PO; +TOPI-253 PO
[2025-09-02 08:16] VITALS: O2SAT 100
[2025-09-02 08:49] LABS: BASOPHILS % 0.6 % (0.0-2.0); EOSINOPHILS % 3.2 % (0.0-5.0); HEMATOCRIT. 38.2 % (36.0-48.0); HEMOGLOBIN. 12.3 g/dL (12.0-16.0); LYMPHOCYTES % 49.9 % (20.0-50.0); MEAN PLATELET VOLUME 7.7 fl (7.4-10.4); MONOCYTES % 10.2 % (2.0-8.0); NEUTROPHILS % 36.1 % (40.0-76.0); PLATELET 186 x1000/uL (130-400); RED BLOOD CELL COUNT 4.00 mill/uL (4.2-5.4); RED CELL DISTRIBUTION WIDTH 15.4 % (11.6-14.6)
[2025-09-02 09:03] LABS: HCG SCREEN NEGATIVE
[2025-09-02 09:05] LABS: CREATININE 1.1 mg/dL (0.6-1.0)
[2025-09-02 09:06] LABS: UREA NITROGEN BLOOD 7 mg/dL (9-23)
[2025-09-02 09:07] LABS: ASPARTATE AMINOTRANSFERASE 18 IU/L (<34)
[2025-09-02 09:08] LABS: BILIRUBIN DIRECT 0.1 mg/dL (<=3.0); BILIRUBIN TOTAL 0.5 mg/dL (0.1-1.0); PROTEIN TOTAL 6.9 g/dL (6.0-8.3)
[2025-09-02 09:09] LABS: CLARITY URINE CLEAR (CLEAR); COLOR URINE YELLOW (YELLOW); GLUCOSE URINE NEGATIVE (NEGATIVE); KETONES URINE NEGATIVE (NEGATIVE); LEUKOCYTE ESTERASE URINE NEGATIVE (NEGATIVE); NITRITE URINE NEGATIVE (NEGATIVE); OCCULT BLOOD URINE NEGATIVE (NEGATIVE); PH URINE 8.5 (4.5-8.0); PROTEIN URINE NEGATIVE (NEGATIVE); SPECIFIC GRAVITY URINE 1.016 (1.005-1.030); UROBILINOGEN URINE 0.2 E.U./dL (0.2-1.0)
[2025-09-02] MEDS: IBUPROFEN 600MG TABLET PO ONE (09:09)
[2025-09-02] MEDS ORDERED: PILO5TAB17 MT (09:22)
[2025-09-02] MEDS ORDERED: HYDR200T35 MT (09:22)
[2025-09-02] MEDS ORDERED: DIVA-18 MT (09:22)
[2025-09-02] MEDS ORDERED: LEVE100023 MT (09:22)
[2025-09-02 09:28] VITALS: BP 136/84; PULSE 55; RESP 16; TEMP 36.8; O2SAT 98
== END 2025-09-02 09:32 | disposition home or self-care (01) ==
LOC: ER 08:09
DX: Z76.0 Encounter for issue of repeat prescription (principal); E11.9 Type 2 diabetes mellitus without complications; F20.9 Schizophrenia, unspecified; G40.909 Epilepsy, unspecified, not intractable, without status epilepticus; I10 Essential (primary) hypertension; M06.9 Rheumatoid arthritis, unspecified; M79.7 Fibromyalgia; Z79.51 Long term (current) use of inhaled steroids; Z79.52 Long term (current) use of systemic steroids; Z79.899 Other long term (current) drug therapy; Z96.649 Presence of unspecified artificial hip joint
CPT/HCPCS: 36415; 80048; 80076; 81003; 84703; 85025; 99283

== ENCOUNTER 2025-09-07 21:44 | Emergency (ER) | payer BC, MEDICAID ==
[~2025-09-07] VITALS: Ht 160 cm; Wt 81.0 kg
[~2025-09-07 21:44] MED LIST changes: +ALBU18HF2 IH; +BENZ1TAB78 PO; +DIVA-18 MT; +DULO60CA64 MT; +ERYT-139 MT; +FLUT12AE3 INH; +FOLI-43 MT; +GABA-529 MT; +HYDR200T35 MT; +HYDR200T80 MT; +LEVE100023 MT; +LEVO5TAB13 MT; +MELO-106 MT; +METH2.5T MT; +NIFE10CA59 MT; +NITR0.4T49 SL; +PANT40TA51 PO; +PILO5TAB17 MT; +PRED5TAB PO; +QUET100T MT; +QUET150T20; +ROPI3TAB21 MT; +TC1C15 TP; +TOPI-253 MT
[2025-09-07 21:50] VITALS: O2SAT 100
[2025-09-07 21:54] VITALS: TEMP 36.7; O2SAT 100
[2025-09-07 23:55] LABS: BASOPHILS % 0.8 % (0.0-2.0); EOSINOPHILS % 1.7 % (0.0-5.0); HEMATOCRIT. 36.8 % (36.0-48.0); HEMOGLOBIN. 12.2 g/dL (12.0-16.0); LYMPHOCYTES % 42.7 % (20.0-50.0); MEAN PLATELET VOLUME 7.3 fl (7.4-10.4); MONOCYTES % 8.9 % (2.0-8.0); NEUTROPHILS % 45.9 % (40.0-76.0); PLATELET 225 x1000/uL (130-400); RED BLOOD CELL COUNT 3.87 mill/uL (4.2-5.4); RED CELL DISTRIBUTION WIDTH 15.0 % (11.6-14.6)
[2025-09-08 00:10] LABS: CREATININE 1.0 mg/dL (0.6-1.0); UREA NITROGEN BLOOD 8 mg/dL (9-23)
[2025-09-08 00:12] LABS: ASPARTATE AMINOTRANSFERASE 19 IU/L (<34); BILIRUBIN DIRECT 0.1 mg/dL (<=3.0); BILIRUBIN TOTAL 0.4 mg/dL (0.1-1.0); PROTEIN TOTAL 6.6 g/dL (6.0-8.3)
[2025-09-08 00:24] LABS: HCG SCREEN POSITIVE
[2025-09-08] MEDS ORDERED: ONDA-239 PO (02:12)
[2025-09-08] MEDS ORDERED: DICY-18 MT (02:12)
[2025-09-08 02:20] VITALS: BP 158/96; PULSE 74; RESP 18
[2025-09-08] MEDS: KETOROLAC 30MG/ML VIAL IM ONE (02:20)
[2025-09-08] MEDS: ACETAMINOPHEN 325MG TABLET PO ONE (02:21)
[2025-09-08 04:00] LABS: *AMPHETAMINES SCREEN URINE NEGATIVE (NEGATIVE); *BARBITURATES SCREEN URINE NEGATIVE (NEGATIVE); *BENZODIAZEPINES SCREEN URINE NEGATIVE (NEGATIVE); *COCAINE SCREEN URINE NEGATIVE (NEGATIVE); CANNABINOID URINE SCREEN PRESUMPTIVE POSITIVE (NEGATIVE); ECSTASY MDMA SCREEN URINE NEGATIVE (NEGATIVE); METHADONE URINE SCREEN NEGATIVE (NEGATIVE); OPIATES URINE SCREEN NEGATIVE (NEGATIVE); PHENCYCLIDINE URINE SCREEN NEGATIVE (NEGATIVE)
== END 2025-09-08 02:59 | disposition home or self-care (01) ==
LOC: ER 21:44
DX: O26.899 Other specified pregnancy related conditions, unspecified trimester (principal); O34.10 Maternal care for benign tumor of corpus uteri, unspecified trimester; O36.80X0 Pregnancy with inconclusive fetal viability, not applicable or unspecified; M06.9 Rheumatoid arthritis, unspecified; M79.7 Fibromyalgia; Z79.899 Other long term (current) drug therapy; Z3A.00 Weeks of gestation of pregnancy not specified
CPT/HCPCS: 80076; 80048; 81025; 80320; 84703; 84702; 83690; 85025; 36415; 99285; 80305; 76830; 76856; 96372; J1885; G0480

== ENCOUNTER 2025-09-10 08:09 | Emergency (ER) | payer BC, MEDICAID ==
[~2025-09-10] VITALS: Ht 160 cm; Wt 80.0 kg
[~2025-09-10 08:09] MED LIST changes: +DICY-18 MT; +ONDA-239 PO
[2025-09-10 08:19] VITALS: O2SAT 97
[2025-09-10 09:00] LABS: BASOPHILS % 0.6 % (0.0-2.0); EOSINOPHILS % 1.5 % (0.0-5.0); HEMATOCRIT. 39.8 % (36.0-48.0); HEMOGLOBIN. 12.8 g/dL (12.0-16.0); LYMPHOCYTES % 40.9 % (20.0-50.0); MEAN PLATELET VOLUME 7.7 fl (7.4-10.4); MONOCYTES % 10.1 % (2.0-8.0); NEUTROPHILS % 46.9 % (40.0-76.0); PLATELET 229 x1000/uL (130-400); RED BLOOD CELL COUNT 4.11 mill/uL (4.2-5.4); RED CELL DISTRIBUTION WIDTH 15.1 % (11.6-14.6)
[2025-09-10 09:13] LABS: B-HCG QUANTITATIVE 9 mIU/mL (<6); CREATININE 0.9 mg/dL (0.6-1.0)
[2025-09-10 09:14] LABS: UREA NITROGEN BLOOD 5 mg/dL (9-23)
[2025-09-10 09:15] LABS: ASPARTATE AMINOTRANSFERASE 21 IU/L (<34)
[2025-09-10 09:16] LABS: BILIRUBIN TOTAL 0.5 mg/dL (0.1-1.0); PROTEIN TOTAL 6.8 g/dL (6.0-8.3)
[2025-09-10 09:27] LABS: CLARITY URINE CLEAR (CLEAR); COLOR URINE YELLOW (YELLOW); GLUCOSE URINE NEGATIVE (NEGATIVE); KETONES URINE NEGATIVE (NEGATIVE); LEUKOCYTE ESTERASE URINE NEGATIVE (NEGATIVE); NITRITE URINE NEGATIVE (NEGATIVE); OCCULT BLOOD URINE NEGATIVE (NEGATIVE); PH URINE 7.5 (4.5-8.0); PROTEIN URINE NEGATIVE (NEGATIVE); SPECIFIC GRAVITY URINE 1.011 (1.005-1.030); UROBILINOGEN URINE 0.2 E.U./dL (0.2-1.0)
[2025-09-10] MEDS: KETOROLAC 30MG/ML VIAL IV ONE (09:34)
[2025-09-10] MEDS: ONDANSETRON HCL 4MG/2ML INJ IV ONE (09:35)
[2025-09-10] MEDS: METHYLPREDNISOLONE SOD SUCC 125MG/2ML (ACT-O-VIAL) IV ONE (09:35)
[2025-09-10] MEDS: SODIUM CHLORIDE 0.9% 1,000 ML IV ONE (09:35)
[2025-09-10] MEDS ORDERED: METH4TAB95 MT (10:06)
[2025-09-10] MEDS ORDERED: IBUP-1455 MT (10:06)
[2025-09-10 10:18] VITALS: BP 132/78; PULSE 85; RESP 16; TEMP 36.6; O2SAT 98
== END 2025-09-10 10:19 | disposition home or self-care (01) ==
LOC: ER 08:09
DX: M79.89 Other specified soft tissue disorders (principal); F12.90 Cannabis use, unspecified, uncomplicated; R10.20 Pelvic and perineal pain unspecified side; Z79.899 Other long term (current) drug therapy
CPT/HCPCS: 99284; 96374; 96375; 96361; 80053; 81003; 81025; 84702; 83690; 85025; 36415; J1885; J2919; J2405; J7030

== ENCOUNTER 2025-09-23 00:55 | Inpatient (IN) | payer BC, MEDICAID ==
[~2025-09-23] VITALS: Ht 165.1 cm; Wt 81.0 kg
[~2025-09-23 00:55] MED LIST changes: +IBUP-1455 MT; +METH4TAB95 MT
[2025-09-23 01:12] VITALS: O2SAT 98
[2025-09-23 03:17] LABS: BASOPHILS % 1.1 % (0.0-2.0); EOSINOPHILS % 1.2 % (0.0-5.0); HEMATOCRIT. 38.2 % (36.0-48.0); HEMOGLOBIN. 12.7 g/dL (12.0-16.0); LYMPHOCYTES % 46.4 % (20.0-50.0); MEAN PLATELET VOLUME 7.6 fl (7.4-10.4); MONOCYTES % 11.7 % (2.0-8.0); NEUTROPHILS % 39.6 % (40.0-76.0); PLATELET 229 x1000/uL (130-400); RED BLOOD CELL COUNT 4.03 mill/uL (4.2-5.4); RED CELL DISTRIBUTION WIDTH 14.8 % (11.6-14.6)
[2025-09-23 03:25] LABS: CREATININE 1.0 mg/dL (0.6-1.0)
[2025-09-23 03:26] LABS: UREA NITROGEN BLOOD 13 mg/dL (9-23)
[2025-09-23 03:27] LABS: ASPARTATE AMINOTRANSFERASE 19 IU/L (<34); BILIRUBIN DIRECT < 0.1 mg/dL (<=3.0); TROPONIN I HIGH SENSITIVITY < 4 ng/L (3.0-34)
[2025-09-23 03:28] LABS: BILIRUBIN TOTAL 0.3 mg/dL (0.1-1.0); PROTEIN TOTAL 6.8 g/dL (6.0-8.3)
[2025-09-23] MEDS ORDERED: LORAZEPAM 2MG/ML UD SYRINGE ONE (04:00)
[2025-09-23] MEDS: LORAZEPAM 2MG/ML UD SYRINGE IM NR (04:04)
[2025-09-23 04:30] LABS: HCG SCREEN INDETERMINATE
[2025-09-23] MEDS: LEVETIRACETAM 1000MG PREMIX 100 ML IV NR (04:42)
[2025-09-23] MEDS: MORPHINE SULFATE 4 MG/ML INJ (FOR IV/IM USE) IV ONE (04:42)
[2025-09-23] MEDS: LORAZEPAM 2MG/ML UD SYRINGE IV NR (06:02)
[2025-09-23 06:05] VITALS: BP 143/92; PULSE 65; RESP 17; TEMP 36.14
[2025-09-23] MEDS: LEVETIRACETAM 1000MG PREMIX 100 ML IV SCH (06:11)
[2025-09-23] MEDS ORDERED: LEVETIRACETAM 1,000MG in NACL 100ML PREMIX IV SCH (06:15)
[2025-09-23 07:15] LABS: CLARITY URINE CLEAR (CLEAR); COLOR URINE YELLOW (YELLOW); PH URINE 6.5 (4.5-8.0); SPECIFIC GRAVITY URINE 1.010 (1.005-1.030)
[2025-09-23 07:16] LABS: GLUCOSE URINE NEGATIVE (NEGATIVE); KETONES URINE NEGATIVE (NEGATIVE); LEUKOCYTE ESTERASE URINE NEGATIVE (NEGATIVE); NITRITE URINE NEGATIVE (NEGATIVE); OCCULT BLOOD URINE NEGATIVE (NEGATIVE); PROTEIN URINE NEGATIVE (NEGATIVE); UROBILINOGEN URINE 0.2 E.U./dL (0.2-1.0)
[2025-09-23 07:32] LABS: *AMPHETAMINES SCREEN URINE NEGATIVE (NEGATIVE); *BARBITURATES SCREEN URINE NEGATIVE (NEGATIVE); *BENZODIAZEPINES SCREEN URINE NEGATIVE (NEGATIVE); *COCAINE SCREEN URINE NEGATIVE (NEGATIVE); CANNABINOID URINE SCREEN PRESUMPTIVE POSITIVE (NEGATIVE); ECSTASY MDMA SCREEN URINE NEGATIVE (NEGATIVE); METHADONE URINE SCREEN NEGATIVE (NEGATIVE); OPIATES URINE SCREEN PRESUMPTIVE POSITIVE (NEGATIVE); PHENCYCLIDINE URINE SCREEN NEGATIVE (NEGATIVE)
[2025-09-23 08:00] VITALS: BP 137/85; PULSE 56; RESP 12; TEMP 36.3; O2SAT 100
[2025-09-23] MEDS ORDERED: METHOTREXATE SODIUM 2 . 5MG TABLET PO SCH (08:30)
[2025-09-23] MEDS ORDERED: ACETAMINOPHEN 325MG TABLET PO PRN (08:30)
[2025-09-23] MEDS ORDERED: ZOLPIDEM TARTRATE 5MG TABLET PO PRN (08:30)
[2025-09-23] MEDS ORDERED: CLONIDINE 0.1MG TABLET PO PRN (08:30)
[2025-09-23] MEDS ORDERED: MAGNESIUM/ALUMINUM HYDROXIDE/SIMETHICONE 30ML UDC PO PRN (08:30)
[2025-09-23] MEDS ORDERED: SODIUM CHLORIDE 0.9% 1,000 ML IV SCH (08:30)
[2025-09-23] MEDS ORDERED: ONDANSETRON HCL 4MG/2ML INJ IV PRN (08:30)
[2025-09-23] MEDS ORDERED: LORAZEPAM 2MG/ML UD SYRINGE IV PRN (08:30)
[2025-09-23] MEDS ORDERED: MORPHINE SULFATE 10 MG/ML INJ (NOT FOR IM USE) IV PRN (08:30)
[2025-09-23] MEDS ORDERED: NIFEDIPINE 10MG CAPSULE PO SCH (09:00)
[2025-09-23] MEDS ORDERED: NALOXONE HCL 0.4MG/ML VIAL IV PRN (09:30)
[2025-09-23] MEDS ORDERED: LEVETIRACETAM 500MG TABLET PO SCH (09:30)
[2025-09-23] MEDS ORDERED: NIFE-71 PO (09:46)
[2025-09-23] MEDS: GABAPENTIN 300MG CAPSULE PO SCH (10:00)
[2025-09-23 10:29] LABS: TROPONIN I HIGH SENSITIVITY < 4 ng/L (3.0-34)
[2025-09-23] MEDS: PANTOPRAZOLE SODIUM 40 MG/VIAL IV SCH (10:40)
[2025-09-23] MEDS: NIFEDIPINE XL 30MG TAB PO SCH (10:42)
[2025-09-23] MEDS: PREDNISONE 5MG TABLET PO SCH (10:43)
[2025-09-23] MEDS: FOLIC ACID 1MG TABLET PO SCH (10:43)
[2025-09-23] MEDS: BENZTROPINE MESYLATE 1MG TABLET PO SCH (10:43)
[2025-09-23] MEDS: ENOXAPARIN 40MG/0.4ML SYR SUBCUT SCH (10:44)
[2025-09-23] MEDS: DIVALPROEX SODIUM 500MG DR TABLET PO SCH (10:46)
[2025-09-23] MEDS: HYDROXYCHLOROQUINE SULFATE 200MG TABLET PO SCH (10:47)
[2025-09-23] MEDS: HYDROCODONE/ACETAMINOPHEN 5/325MG TABLET PO PRN (11:00)
[2025-09-23 12:00] VITALS: BP 123/83; PULSE 61; RESP 16; TEMP 36.6; O2SAT 98
[2025-09-23 13:53] LABS: CREATININE 0.9 mg/dL (0.6-1.0); UREA NITROGEN BLOOD 9 mg/dL (9-23)
[2025-09-23 13:55] LABS: ASPARTATE AMINOTRANSFERASE 20 IU/L (<34); BILIRUBIN TOTAL 0.4 mg/dL (0.1-1.0)
[2025-09-23 13:56] LABS: PROTEIN TOTAL 6.1 g/dL (6.0-8.3)
[2025-09-23] MEDS ORDERED: PILOCARPINE HCL 1% OPHTH DROPS 15ML BOTHEYE SCH (14:00)
[2025-09-23] MEDS ORDERED: QUETIAPINE FUMARATE 50MG TABLET PO SCH (21:00)
[2025-09-23] MEDS ORDERED: ROPINIROLE HCL 1MG TABLET PO SCH (21:00)
[2025-10-12] MEDS ORDERED: P20 MT (16:03)
[2025-10-12] MEDS ORDERED: ONDA-239 PO (16:03)
[2025-10-17] MEDS ORDERED: METO5TAB86 MT (13:19)
== END 2025-09-23 12:29 | disposition left against medical advice (07) | DRG 313 ==
LOC: ER 00:55 → 3WST 04:03 → EDBEDREQ 04:13 → EDBEDREQTM 04:13 → ENRESERV 04:26 → 3WST 05:43
PROVIDERS: ADMIT Internal Medicine; ATTEND Internal Medicine
DX: R07.89 Other chest pain (principal); R06.02 Shortness of breath; Z53.29 Procedure and treatment not carried out because of patient's decision for other reasons
CPT/HCPCS: 36415; 71045; 80048; 80053; 80076; 80305; 81003; 83605; 83735; 84484; 84702; 84703; 85025; 85379; 93005; 99285; A4606; J1650; J1953; J2060; J2270; J2470; J7512

== ENCOUNTER 2025-10-01 08:49 | Emergency (ER) | payer BC, MEDICAID ==
[~2025-10-01] VITALS: Ht 160 cm; Wt 80.0 kg
[~2025-10-01 08:49] MED LIST changes: -ALBU18HF2 IH; -DIVA-18 MT; -DIVA-18 PO; -DULO60CA64 PO; -FOLI-43 MT; -GABA-529 PO; -HYDR200T35 PO; -HYDR200T80 MT; -IBUP-1455 MT; -LEVE100023 MT; -METH4TAB95 MT; +NIFE-71 PO; -NIFE10CA59 MT; -NITR0.4T49 SL; -ONDA-239 PO; -PANT40TA51 PO; -PILO5TAB17 PO; -PRED10TA PO; -QUET150T20; -TOPI-253 MT
[2025-10-01 08:55] VITALS: O2SAT 99
[2025-10-01] MEDS: GABAPENTIN 300MG CAPSULE PO ONE (09:38)
[2025-10-01 09:48] LABS: CLARITY URINE CLOUDY (CLEAR); COLOR URINE DARK YELLOW (YELLOW); GLUCOSE URINE NEGATIVE (NEGATIVE); KETONES URINE TRACE (NEGATIVE); LEUKOCYTE ESTERASE URINE TRACE (NEGATIVE); NITRITE URINE NEGATIVE (NEGATIVE); OCCULT BLOOD URINE NEGATIVE (NEGATIVE); PH URINE 7.5 (4.5-8.0); PROTEIN URINE 1+ (NEGATIVE); SPECIFIC GRAVITY URINE 1.026 (1.005-1.030); UROBILINOGEN URINE 1.0 E.U./dL (0.2-1.0)
[2025-10-01 09:59] LABS: BACTERIA URINE 1+; RBC URINE 0-2 /hpf (0-2); SQUAMOUS EPITHELIAL CELL URINE 3+ /lpf (RARE/1+); YEAST URINE NONE SEEN
[2025-10-01 12:03] LABS: BASOPHILS % 1.4 % (0.0-2.0); EOSINOPHILS % 2.0 % (0.0-5.0); HEMATOCRIT. 37.8 % (36.0-48.0); HEMOGLOBIN. 12.6 g/dL (12.0-16.0); LYMPHOCYTES % 40.9 % (20.0-50.0); MEAN PLATELET VOLUME 8.9 fl (7.4-10.4); MONOCYTES % 5.3 % (2.0-8.0); NEUTROPHILS % 50.4 % (40.0-76.0); PLATELET 262 x1000/uL (130-400); RED BLOOD CELL COUNT 3.97 mill/uL (4.2-5.4); RED CELL DISTRIBUTION WIDTH 14.4 % (11.6-14.6)
[2025-10-01 12:21] LABS: CREATININE 1.0 mg/dL (0.6-1.0); UREA NITROGEN BLOOD 9 mg/dL (9-23)
[2025-10-01 12:22] LABS: TROPONIN I HIGH SENSITIVITY < 4 ng/L (3.0-34)
[2025-10-01 12:23] LABS: ASPARTATE AMINOTRANSFERASE 26 IU/L (<34); BILIRUBIN DIRECT 0.1 mg/dL (<=3.0); BILIRUBIN TOTAL 0.5 mg/dL (0.1-1.0); PROTEIN TOTAL 6.7 g/dL (6.0-8.3)
[2025-10-01] MEDS ORDERED: ACETAMINOPHEN 325MG TABLET PO PRN ×2 (14:45→15:00)
[2025-10-01] MEDS ORDERED: METHOTREXATE SODIUM 2 . 5MG TABLET PO SCH (14:45)
[2025-10-01] MEDS: PREDNISONE 20MG TABLET PO ONE (14:58)
[2025-10-01] MEDS: ONDANSETRON HCL 4MG/2ML INJ IV PRN (15:03)
[2025-10-01] MEDS: PREDNISONE 5MG TABLET PO SCH (17:33)
[2025-10-01] MEDS: GABAPENTIN 100MG CAPSULE PO SCH (17:33)
[2025-10-01 17:34] VITALS: BP 160/69; PULSE 52; RESP 18; TEMP 36.7; O2SAT 98
[2025-10-01] MEDS ORDERED: PREGABALIN 75MG CAPSULE PO SCH (21:00)
[2025-10-01] MEDS ORDERED: TOPIRAMATE 100MG TABLET PO SCH (21:00)
[2025-10-01] MEDS ORDERED: LEVETIRACETAM 500MG TABLET PO SCH (21:00)
[2025-10-01] MEDS ORDERED: HYDROXYCHLOROQUINE SULFATE 200MG TABLET PO SCH (21:00)
[2025-10-01] MEDS ORDERED: DIVALPROEX SODIUM 500MG DR TABLET PO SCH (21:00)
[2025-10-01] MEDS ORDERED: DULOXETINE HCL 60MG DR CAPSULE PO SCH (21:00)
[2025-10-02] MEDS ORDERED: BENZTROPINE MESYLATE 1MG TABLET PO SCH (09:00)
[2025-10-02] MEDS ORDERED: PANTOPRAZOLE SODIUM 40 MG/VIAL IV SCH (09:00)
[2025-10-02] MEDS ORDERED: FOLIC ACID 1MG TABLET PO SCH (09:00)
[2025-10-12] MEDS ORDERED: ONDA-239 PO (16:03)
[2025-10-12] MEDS ORDERED: P20 MT (16:03)
[2025-10-17] MEDS ORDERED: METO5TAB86 MT (13:19)
== END 2025-10-01 17:52 | disposition left against medical advice (07) ==
LOC: ER 08:49 → EDBEDREQTM 13:32 → EDBEDREQ 13:32 → ER 17:52 → CMPBEDREQ 10-02 07:47
DX: M79.89 Other specified soft tissue disorders (principal); J45.909 Unspecified asthma, uncomplicated; I10 Essential (primary) hypertension; R06.02 Shortness of breath; Z96.649 Presence of unspecified artificial hip joint; Z79.899 Other long term (current) drug therapy
CPT/HCPCS: 99285; 96374; 80076; 80048; 81003; 81025; 82550; 83880; 83690; 83735; 85025; 84484; 36415; 73130; 93005; J7512 ×2

== ENCOUNTER 2025-10-18 16:29 | Emergency (ER) | payer BC, MEDICAID ==
[~2025-10-18] VITALS: Ht 165.1 cm; Wt 60.0 kg
[~2025-10-18 16:29] MED LIST changes: -ERYT-139 MT; -ERYT-139 PO; -FLUT12AE3 INH; -FLUT16SP15 NAS; -MELO-106 MT; +METO5TAB86 MT; +ONDA-239 PO; -PRED5TAB PO; -PREG75CA PO; -QUET150T20 PO
[2025-10-18 16:32] VITALS: O2SAT 96
[2025-10-18] MEDS: ACETAMINOPHEN 325MG TABLET PO ONE (17:06)
[2025-10-18 17:29] LABS: BASOPHILS % 0.3 % (0.0-2.0); EOSINOPHILS % 0.7 % (0.0-5.0); HEMATOCRIT. 38.7 % (36.0-48.0); HEMOGLOBIN. 12.7 g/dL (12.0-16.0); LYMPHOCYTES % 35.7 % (20.0-50.0); MEAN PLATELET VOLUME 7.5 fl (7.4-10.4); MONOCYTES % 10.5 % (2.0-8.0); NEUTROPHILS % 52.8 % (40.0-76.0); PLATELET 255 x1000/uL (130-400); RED BLOOD CELL COUNT 4.08 mill/uL (4.2-5.4); RED CELL DISTRIBUTION WIDTH 14.3 % (11.6-14.6)
[2025-10-18 17:42] LABS: B-HCG QUANTITATIVE 12.0 mIU/mL (<6); CREATININE 1.2 mg/dL (0.6-1.0); UREA NITROGEN BLOOD 13.0 mg/dL (9-23)
[2025-10-18 18:25] LABS: CLARITY URINE CLOUDY (CLEAR); GLUCOSE URINE NEGATIVE (NEGATIVE); KETONES URINE TRACE (NEGATIVE); LEUKOCYTE ESTERASE URINE TRACE (NEGATIVE); NITRITE URINE NEGATIVE (NEGATIVE); OCCULT BLOOD URINE NEGATIVE (NEGATIVE); PH URINE 5.5 (4.5-8.0); PROTEIN URINE TRACE (NEGATIVE); SPECIFIC GRAVITY URINE 1.027 (1.005-1.030); UROBILINOGEN URINE 1.0 E.U./dL (0.2-1.0)
[2025-10-18 19:18] LABS: COLOR URINE YELLOW (YELLOW)
[2025-10-18 19:19] LABS: RBC URINE NONE SEEN /hpf (0-2); WBC URINE 0-2 /hpf (0-2)
[2025-10-18 19:20] LABS: SQUAMOUS EPITHELIAL CELL URINE 3+ /lpf (RARE/1+)
[2025-10-18 19:21] LABS: BACTERIA URINE TRACE
[2025-10-18 19:22] LABS: MUCUS URINE TRACE /lpf (< = 2+)
[2025-10-18] MEDS ORDERED: TOPUD MT (19:31)
[2025-10-18] MEDS: POTASSIUM CHLORIDE 20MEQ/PACKET PO ONE (19:43)
[2025-10-18 19:51] VITALS: BP 113/74; PULSE 85; RESP 14; TEMP 36.6; O2SAT 100
== END 2025-10-18 19:53 | disposition home or self-care (01) ==
LOC: ER 16:47
DX: R10.32 Left lower quadrant pain (principal); R10.31 Right lower quadrant pain; E87.6 Hypokalemia; F32.A Depression, unspecified; I10 Essential (primary) hypertension; J45.909 Unspecified asthma, uncomplicated; M19.90 Unspecified osteoarthritis, unspecified site; M79.604 Pain in right leg; Z79.1 Long term (current) use of non-steroidal anti-inflammatories (NSAID); Z79.51 Long term (current) use of inhaled steroids; Z79.52 Long term (current) use of systemic steroids; Z79.899 Other long term (current) drug therapy; Z96.642 Presence of left artificial hip joint
CPT/HCPCS: 36415; 74176; 80048; 81003; 81025; 84702; 85025; 99284

== ENCOUNTER 2025-11-29 12:52 | Emergency (ER) | payer BC, MEDICAID ==
[~2025-11-29] VITALS: Ht 160 cm; Wt 70.0 kg
[~2025-11-29 12:52] MED LIST changes: +TOPUD MT
[2025-11-29] MEDS: IBUPROFEN 600MG TABLET PO ONE (14:40)
[2025-11-29] MEDS: ACETAMINOPHEN 325MG TABLET PO ONE (14:40)
[2025-11-29] MEDS: SODIUM CHLORIDE 0.9% 1,000 ML IV ONE (14:41)
[2025-11-29 15:12] LABS: BASOPHILS % 1.3 % (0.0-2.0); EOSINOPHILS % 1.5 % (0.0-5.0); HEMATOCRIT. 35.1 % (36.0-48.0); HEMOGLOBIN. 11.7 g/dL (12.0-16.0); LYMPHOCYTES % 35.1 % (20.0-50.0); MEAN PLATELET VOLUME 6.8 fl (7.4-10.4); MONOCYTES % 12.8 % (2.0-8.0); NEUTROPHILS % 49.3 % (40.0-76.0); PLATELET 269 x1000/uL (130-400); RED BLOOD CELL COUNT 3.73 mill/uL (4.2-5.4); RED CELL DISTRIBUTION WIDTH 16.8 % (11.6-14.6)
[2025-11-29 15:26] VITALS: PULSE 64; RESP 24; O2SAT 96
[2025-11-29] MEDS: IPRATROPIUM/ALBUTEROL 0.5-3(2.5)MG/3ML NEB HHN SCH (15:26)
[2025-11-29 15:28] LABS: CREATININE 0.9 mg/dL (0.6-1.0); UREA NITROGEN BLOOD 13 mg/dL (9-23)
[2025-11-29 15:29] LABS: HCG SCREEN INDETERMINATE; PROTEIN TOTAL 6.4 g/dL (6.0-8.3); TROPONIN I HIGH SENSITIVITY < 4 ng/L (3.0-34)
[2025-11-29 15:30] LABS: BILIRUBIN DIRECT < 0.1 mg/dL (<=3.0); BILIRUBIN TOTAL 0.4 mg/dL (0.1-1.0)
[2025-11-29 15:34] LABS: ASPARTATE AMINOTRANSFERASE 18 IU/L (<34)
[2025-11-29] MEDS: ONDANSETRON HCL 4MG/2ML INJ IV ONE (16:02)
[2025-11-29 16:13] VITALS: BP 153/99; PULSE 90; RESP 16; TEMP 37.2; O2SAT 99
== END 2025-11-29 16:45 | disposition home or self-care (01) ==
LOC: ER 12:52 → EDBEDREQ 14:34 → CANBEDREQ 16:10 → ER 16:45
DX: B34.9 Viral infection, unspecified (principal); R42 Dizziness and giddiness; R06.2 Wheezing; R10.9 Unspecified abdominal pain; E11.9 Type 2 diabetes mellitus without complications; F32.A Depression, unspecified; K58.9 Irritable bowel syndrome, unspecified; M06.9 Rheumatoid arthritis, unspecified; Z79.51 Long term (current) use of inhaled steroids; Z79.899 Other long term (current) drug therapy
CPT/HCPCS: 99291; 96374; 96361; 80076; 80048; 84703; 83690; 83735; 85025; 84484; 36415; 71045; 94640; 93005; J2405; J7030